=== PATIENT | male | born 1945 | race American Indian/Alaskan Native ===

== ENCOUNTER 2018-10-04 06:26 | Emergency (ER) | payer MEDICARE ==
[2018-10-04] MEDS ORDERED: MAGNESIUM SULFATE 2GM/50ML 2 GM/50 ML BAG IV ONE (06:43)
[2018-10-04] MEDS ORDERED: NACL 0.9% 500 ML 500 ML IV ONE (06:43)
[2018-10-04] MEDS ORDERED: PROVENTIL IH ONE ×2 (06:43→06:45)
[2018-10-04] MEDS ORDERED: ATROVENT IH ONE ×2 (06:43→06:45)
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
[2018-10-04 07:05] LABS: Hematocrit 35.7 % (35.5-45.6); Hemoglobin 11.8 gm/dl (11.8-15.2); Mean Corpuscular HGB Conc 33 % (32-34); Mean Corpuscular Volume 87 fl (84-94); Platelet Count 194 K/mm3 (140-440); Red Cell Distribution Width 13.4 % (13.2-15.2)
--- NOTE | 2018-10-04 07:08 | XRay Report ---
CHEST 1 VIEW 6:46 AM INDICATION / CLINICAL INFORMATION: Wheezing x 1 month. COMPARISON: None available. FINDINGS: SUPPORT DEVICES: None. HEART / MEDIASTINUM: The heart size and pulmonary vasculature are normal. LUNGS / PLEURA: There is minimal linear opacity in the right lung base. The lungs are otherwise clear . No pneumothorax. ADDITIONAL FINDINGS: There are multiple small metallic densities overlying the left coracoclavicular ligament. IMPRESSION: Minimal right basilar subsegmental atelectasis. Signer Name: Max Barlow MD Signed: 10/04/2018 7:03 AM Workstation Name: [id number]
[2018-10-04 07:17] LABS: INR 0.98 (0.87-1.13)
[2018-10-04 07:25] LABS: BUN/Creatinine Ratio 12; Blood Urea Nitrogen 14 mg/dL (9-20); Calcium 9.4 mg/dL (8.4-10.2); Hemolysis Index 10
--- NOTE | 2018-10-04 09:30 | Cat Scan Report ---
CTA CHEST WITH CONTRAST INDICATION : Shortness of breath for one day, asthma attack. TECHNIQUE: Axial imaging performed through the chest, with contrast bolus timing set to maximize opa cification of the pulmonary arteries. Sagittal and coronal reformatted images. 3-plane MIP reformatte d images were obtained. All CT scans at this location are performed using CT dose reduction for ALAR A by means of automated exposure control. Omnipaque 350 100 mL of intravenous contrast administered. COMPARISON: None FINDINGS: Bolus: Contrast bolus timing is adequate. PTE: No filling defect is present to suggest PTE. Mediastinum: Heart and great vessels appear normal. No pathologic mediastinal adenopathy. Lungs: The lung apices are cut off the [id number]. Minor scarring or atelectatic changes are note d at the right lung base. No evidence for infiltrate, mass, pleural effusion or pneumothorax. Bones: Degenerative changes in the spine with nothing acute. Upper abdomen: Limited imaging of the upper abdomen shows nothing acute. IMPRESSION: No evidence for pulmonary embolus. Minor scarring or atelectasis in the right lower lobe. No acute p rocess. Signer Name: Mj Wallace Jr, MD Signed: 10/04/2018 9:26 AM Workstation Name: [id number]
[2018-10-04 10:32] VITALS: BP 142/82
== END 2018-10-04 10:34 | disposition home or self-care (01) ==
LOC: ED 06:26
DX: J45.901 Unspecified asthma with (acute) exacerbation (principal); I10 Essential (primary) hypertension; K21.9 Gastro-esophageal reflux disease without esophagitis; Z98.890 Other specified postprocedural states; Z79.899 Other long term (current) drug therapy
CPT/HCPCS: 36415; 71045; 71275; 80048; 83735; 85027; 85379; 85610; 93005; 93010; 94640; 96365; 96366; 99291; J3475; J7040; Q9967; 94644

== ENCOUNTER 2019-01-26 15:20 | Emergency (ER) | payer MEDICARE ==
[2019-01-26] MEDS ORDERED: IBUPROFEN 600 MG TAB PO ONE (16:43)
--- NOTE | 2019-01-26 16:43 | Event Note ---
ED Screening Note Date of service: 01/26/19 Time: 16:39 ED Screening Note: This is a 74 y.o. M. that presents to the ER with headache, dizziness, and elevated BP since 1200 today. PMH HTN and asthma Patient reports taking medication prior to arrival which improved BP but can't get rid of BP and dizziness. This initial assessment/diagnostic orders/clinical plan/treatment(s) is/are subject to change based on patients health status, clinical progression and re- assessment by fellow clinical providers in the ED. Further treatment and workup at subsequent clinical providers discretion. Patient/guardian urged not to elope from the ED as their condition may be serious if not clinically assessed and managed. Initial orders include: Given analgesics
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
[2019-01-26] MEDS ORDERED: ACETAMINOPHEN W/CODEINE 300-30 MG TAB PO ONE (18:51)
[2019-01-26 19:41] VITALS: BP 176/87
--- NOTE | 2019-01-26 19:42 | Cat Scan Report ---
CT head/brain wo con INDICATION / CLINICAL INFORMATION: CT head for headache with h/o stroke. TECHNIQUE: Axial CT imaging of the brain was obtained without contrast. Coronal and sagittal reformatted imaging obtained and reviewed. All CT scans at this location are performed using CT dose reduction for LUPIS A by means of automated exposure control. COMPARISON: Prior head CT, 06/24/2014 FINDINGS: No intracranial hemorrhage, mass, or midline shift is noted. No extra-axial fluid collection or sugge stion of acute territorial infarct. Ventricular system and basilar cisterns are unremarkable. Age-mirza ropriate cerebral and cerebellar atrophy noted. Mild microvascular angiopathic changes noted. Mucous retention cysts are present in the left maxillary antrum not appreciably changed from prior ex am. Mucosal thickening is identified throughout all of the paranasal sinuses, but most prominently wi thin the ethmoid air cells bilaterally. No air-fluid levels are noted. Mastoid air cells are well aer ated bilaterally. IMPRESSION: 1. No acute intracranial abnormality. Overall, no interval change from prior head CT of 06/24/2014. 2. Mild age-related changes appropriate for the patient's age. 3. Mucosal thickening is noted throughout all paranasal sinuses, but is most prominent within the eth moid air cells bilaterally. This is essentially unchanged from prior exam. Signer Name: Gabrielle Gayle MD Signed: 01/26/2019 7:37 PM Workstation Name: [id number]
== END 2019-01-26 21:11 | disposition home or self-care (01) ==
LOC: ED 15:20
DX: J32.9 Chronic sinusitis, unspecified (principal); I10 Essential (primary) hypertension; K21.9 Gastro-esophageal reflux disease without esophagitis; J45.909 Unspecified asthma, uncomplicated; Z86.718 Personal history of other venous thrombosis and embolism; Z79.899 Other long term (current) drug therapy
CPT/HCPCS: 70450

== ENCOUNTER 2019-10-10 21:18 | Observation (INO) | payer MEDICARE ==
[2019-10-10 23:24] LABS: Basophils % (Auto) 0.6 % (0.0-1.8); Eosinophils # (Auto) 0.1 K/mm3 (0.0-0.4); Eosinophils % (Auto) 0.7 % (0.0-4.3); Hemoglobin 10.5 gm/dl (11.8-15.2); Lymphocytes # (Auto) 1.6 K/mm3 (1.2-5.4); Lymphocytes % (Auto) 18.4 % (13.4-35.0); Mean Corpuscular HGB Conc 34 % (32-34); Mean Corpuscular Volume 85 fl (84-94); Monocytes # (Auto) 0.6 K/mm3 (0.0-0.8); Monocytes % (Auto) 6.6 % (0.0-7.3); Platelet Count 192 K/mm3 (140-440); Red Blood Count 3.65 M/mm3 (3.65-5.03); Red Cell Distribution Width 12.9 % (13.2-15.2)
[2019-10-10 23:53] LABS: BUN/Creatinine Ratio 13; Blood Urea Nitrogen 16 mg/dL (9-20); Calcium 8.5 mg/dL (8.4-10.2); Hemolysis Index 3
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
[2019-10-11 10:29] LABS: INR 0.97 (0.87-1.13)
[2019-10-11 10:41] LABS: Alanine Aminotransferase 12 units/L (7-56); Albumin 4.3 g/dL (3.9-5)
--- NOTE | 2019-10-11 10:45 | Cat Scan Report ---
CT head without contrast HISTORY: weak dizzy. TECHNIQUE: Axial imaging performed from the skull apex through the skull base without the use of con trast. All CT scans at this location are performed using CT dose reduction for ALARA by means of aut omated exposure control. COMPARISON: CT head from 01/26/2019 FINDINGS: Parenchyma: No acute intracranial hemorrhage or parenchymal abnormality. Bilateral basal ganglia armani cifications are present. Ventricles: There is mild diffuse brain atrophy with commensurate ventricular enlargement which is l ikely age appropriate. Soft tissues: Soft tissues including the orbits appear normal. Bones: No acute osseous abnormality. Sinuses: There is diffuse paranasal sinus mucosal thickening/mucous retention cysts greatest involvi ng the frontal sinuses, multiple bilateral ethmoid air cells, the maxillary sinuses, and the sphenoid sinuses. The mastoid air cells are clear. IMPRESSION: 1. No acute intracranial abnormality. 2. Diffuse paranasal sinus disease. Signer Name: Cristobal Watkins MD Signed: 10/11/2019 10:41 AM Workstation Name: [id number]
[2019-10-11 10:48] LABS: Bilirubin,Direct < 0.2 mg/dL (0-0.2)
[2019-10-11 10:58] LABS: Uric Acid 7.8 mg/dL (3.5-7.6)
[2019-10-11] MEDS ORDERED: FUROSEMIDE 20 MG/2 ML INJ IV ONE (11:11)
[2019-10-11 13:10] LABS: Bilirubin,Urine NEG (Negative); Blood,Urine NEG (Negative); Color,Urine Yellow (Yellow); Protein,Urine <15 mg/dL mg/dL (Negative); Urobilinogen,Urine < 2.0 mg/dL (<2.0); WBC,Urine < 1.0 /HPF (0.0-6.0)
[2019-10-11] MEDS ORDERED: ACETAMINOPHEN 325 MG TAB PO PRN (13:24)
[2019-10-11] MEDS ORDERED: ONDANSETRON 4 MG/2 ML INJ IV PRN (13:24)
[2019-10-11] MEDS ORDERED: SODIUM CHLORIDE 0.9% 1000 ML 1,000 ML ONE (13:45)
[2019-10-11] MEDS: SODIUM CHLORIDE 0.9% 1000 ML 1,000 ML IV SCH (13:48)
[2019-10-11 14:35] LABS: Osmolality,Urine 241 Mosm/kg
[2019-10-11] MEDS ORDERED: PROAIR 90 MCG INHALATION PRN (17:26)
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
[2019-10-11] MEDS ORDERED: ALBUTEROL 2.5 MG/3 ML NEBU IH PRN (17:43)
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
[2019-10-11] MEDS ORDERED: ADVAIR INHALATION SCH (22:00)
[2019-10-11] MEDS ORDERED: ROSUVASTATIN 40 MG PO SCH (22:00)
[2019-10-11] MEDS: BUDESONIDE 0.5 MG/2 ML NEBU IH SCH (22:50)
[2019-10-11] MEDS: ARFORMOTEROL 15 MCG/2 ML NEBU IH SCH (22:50)
[2019-10-12] MEDS: SODIUM CHLORIDE 0.9% 1000 ML 1,000 ML IV SCH ×2 (04:33→18:47)
[2019-10-12 05:52] LABS: Basophils % (Auto) 0.2 % (0.0-1.8); Eosinophils # (Auto) 0.2 K/mm3 (0.0-0.4); Eosinophils % (Auto) 2.7 % (0.0-4.3); Hematocrit 30.6 % (35.5-45.6); Hemoglobin 10.3 gm/dl (11.8-15.2); Lymphocytes # (Auto) 1.7 K/mm3 (1.2-5.4); Lymphocytes % (Auto) 26.3 % (13.4-35.0); Mean Corpuscular HGB Conc 34 % (32-34); Mean Corpuscular Volume 87 fl (84-94); Monocytes # (Auto) 0.5 K/mm3 (0.0-0.8); Monocytes % (Auto) 8.2 % (0.0-7.3); Platelet Count 198 K/mm3 (140-440); Red Blood Count 3.54 M/mm3 (3.65-5.03); Red Cell Distribution Width 13.1 % (13.2-15.2)
[2019-10-12 06:14] LABS: Calcium 8.2 mg/dL (8.4-10.2)
--- NOTE | 2019-10-12 09:45 | Progress Note ---
Assessment and Plan - Patient Problems (1) Hyponatremia Current Visit: Yes Status: Acute Plan to address problem: suspect hyponatremia 2/2 chronic HCTZ use, intravascular volume depletion as indicated by increased serum uric acid level, low urine Na level. Cont to hold HCTZ. Na improved to 129 after treatment with lasix and gentle IV NS. Cr marginally increased to 1.5, likely pre-renal azotemia. Recommend another bolus with NS 250ml then repeat BMP in PM. if Na and Cr improves further stable for discharge from renal stand point with close out patient f/u in 1 week (2) Elevated CK Current Visit: Yes Status: Acute Plan to address problem: possibly 2/2 statin use? recommend to hold rosuvastatin and cont IV NS (3) Hyperlipidemia Current Visit: Yes Status: Chronic Qualifiers: Hyperlipidemia type: mixed hyperlipidemia Qualified Code(s): E78.2 - Mixed hyperlipidemia Plan to address problem: hold statin in the setting of mild rhabdomyolysis (4) Hyperuricemia Current Visit: Yes Status: Chronic (5) HTN (hypertension) Current Visit: No Status: Chronic Qualifiers: Hypertension type: essential hypertension Qualified Code(s): I10 - Essential (primary) hypertension Plan to address problem: monitor BP on current meds Subjective Date of service: 10/12/19 Principal diagnosis: hyponatremia Interval history: patient awake, alert, in no acute distress. denies fever, chills, n/v, CP, SOB, dysuria. Objective - Vital Signs Vital signs: Vital Signs - 12hr 10/12/19 10/12/19 05:00 05:40 Temperature 98.1 F Pulse Rate 74 Respiratory 18 20 Rate Blood Pressure 123/67 O2 Sat by Pulse 94 94 Oximetry - General Appearance General appearance: well-developed, well-nourished, appears stated age EENT: ATNC, PERRL, mucous membranes moist Neck: no JVD Respiratory: Present: Clear to Ascultation Cardiology: regular, S1S2 Gastrointestinal: normoactive bowel sounds Integumentary: no rash, other (no edema ) Neurologic: no focal deficit, alert and oriented x3, strength 5/5, CN 3-12 intact Psychiatric: mood/affect appropriate, cooperative - Lab 10/12/19 04:25 10/12/19 04:25 Most recent lab results Calcium 8.2 mg/dL (8.4-10.2) L 10/12/19 04:25 Magnesium 1.80 mg/dL (1.7-2.3) 10/11/19 09:53 Urine Sodium 19 mmol/L 10/11/19 12:56 Medications & Allergies - Medications Allergies/Adverse Reactions: Allergies No Known Allergies Allergy (Unverified 06/15/14 17:55) Home Medications: Home Medications Medication Instructions Recorded Confirmed Last Taken Type Advair Diskus 250-50 mcg 250 mcg INHALATION BID 10/11/19 10/11/19 Unknown History Doxazosin 2 mg PO QDAY 10/11/19 10/11/19 Unknown History Esomeprazole Magnesium 20 mg PO QDAY 10/11/19 10/11/19 Unknown History Ferrous Sulfate 324 MG 325 mg PO QDAY 10/11/19 10/11/19 Unknown History Olmesartan/Hydrochlorothiazide 20 mg PO QDAY 10/11/19 10/11/19 Unknown History [Benicar Hct 20-12.5 mg Tablet] ProAir HFA Inhaler 90 mcg INHALATION Q4HR PRN 10/11/19 10/11/19 Unknown History Remeron 45mg TAB 45 mg TRANSLINGU QHS 10/11/19 10/11/19 Unknown History Rosuvastatin (Nf) 40 mg PO Q12HR 10/11/19 10/11/19 Unknown History Vitamin D2 50,000 units PO QWEEK 10/11/19 10/11/19 Unknown History amLODIPine 5 mg PO QDAY 10/11/19 10/11/19 Unknown History Active Medications: Generic Name Dose Route Start Last Admin Trade Name Freq PRN Reason Stop Dose Admin Acetaminophen 650 mg 10/11/19 13:24 10/12/19 08:38 Tylenol PO 650 mg Q4H PRN Administration Pain MILD(1-3)/Fever >100.5/[facility]NAMARA Albuterol 2.5 mg 10/11/19 17:43 Proventil IH Q4HRT PRN Dyspnea Amlodipine Besylate 5 mg 10/12/19 10:00 Amlodipine PO QDAY ELIER Arformoterol Tartrate 15 mcg 10/11/19 20:00 10/11/19 22:50 Brovana Nebu IH Not Given Q12HRT ELIER Atorvastatin Calcium 40 mg 10/11/19 22:00 10/11/19 22:02 Lipitor PO 40 mg QHS ELIER Administration Budesonide 0.5 mg 10/11/19 20:00 10/11/19 22:50 Pulmicort IH Not Given Q12HRT ELIER Sodium Chloride 1,000 mls @ 75 mls/hr 10/11/19 13:30 10/12/19 04:33 Nacl 0.9% 1000 Ml IV 100 mls/hr DIRECT ELIER Administration Losartan Potassium 50 mg 10/12/19 10:00 Cozaar PO QDAY ELIER Ondansetron HCl 4 mg 10/11/19 13:24 10/11/19 22:02 Zofran IV 4 mg Q8H PRN Administration Nausea And Vomiting Sodium Chloride 10 ml 10/11/19 22:00 10/11/19 22:02 Sodium Chloride Flush Syringe 10 Ml IV 10 ml BID ELIER Administration Sodium Chloride 10 ml 10/11/19 13:24 Sodium Chloride Flush Syringe 10 Ml IV PRN PRN LINE FLUSH
[2019-10-12] MEDS ORDERED: SODIUM CHLORIDE 0.9% 250ML 250 ML IV ONE (10:00)
[2019-10-12] MEDS ORDERED: NON-FORMULARY EACH (Amlodipine 5 MG) PO SCH (10:00)
[2019-10-12] MEDS: amLODIPine 5 MG TAB PO SCH (10:26)
[2019-10-12] MEDS: LOSARTAN 50 MG TAB PO SCH (10:26)
[2019-10-12] MEDS: ARFORMOTEROL 15 MCG/2 ML NEBU IH SCH ×2 (10:49→21:31)
[2019-10-12] MEDS: BUDESONIDE 0.5 MG/2 ML NEBU IH SCH ×2 (10:49→21:31)
--- NOTE | 2019-10-12 16:58 | Progress Note ---
Assessment and Plan Assessment and plan: Socorro Varghese is a 74-year-old -Israeli male with history of hypertension, asthma, hyperlipidemia presents to the ED with complaints of blood pressure being high. He states that he ate hot dog earlier in the day at home and then checked his blood pressure at home and states it was 190/94 and he d ecided to come to the ED. he denies any chest pain. He states he has chronic shortness of breath from asthma. Complains of generalized weakness but denies any fever, chills, exertional chest pain nausea vomiting or abdominal pain. In the ED he was noted to be hyponatremic and patient is being admitted for further management (1) Hyponatremia Current Visit: Yes Status: Acute Plan to address problem: improved Thiazide induced, as patient is on losartan/HCT Start on IV normal saline Recheck electrolytes in a.m. 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 (4) Asthma Current Visit: No Status: Chronic Qualifiers: Asthma severity: mild Asthma complication type: uncomplicated Plan to address problem: Not in exacerbation Continue home inhalers (5) HTN (hypertension) Current Visit: No Status: Chronic Qualifiers: Hypertension type: essential hypertension Qualified Code(s): I10 - Essential (primary) hypertension Plan to address problem: Patient's blood pressure in the ED was in the normal range Continue amlodipine Losartan without HCT (6) Hyperlipidemia Current Visit: Yes Status: Chronic Qualifiers: Hyperlipidemia type: mixed hyperlipidemia Qualified Code(s): E78.2 - Mixed hyperlipidemia Plan to address problem: Continue statin History Interval history: Patient seen and examined no acute distress at this time resting comfortably. Hospitalist Physical - Physical exam Narrative exam: VITAL SIGNS: Reviewed. GENERAL: The patient appears normally developed,, obese vital signs as documented. HEAD: No signs of head trauma. EYES: Pupils are equal. Extraocular motions intact. EARS: Hearing grossly intact. MOUTH: Oropharynx is normal. NECK: No adenopathy, no JVD. CHEST: Chest with clear breath sounds bilaterally. No wheezes, rales, or rhonchi. CARDIAC: Regular rate and rhythm. S1 and S2, without murmurs, gallops, or rubs. VASCULAR: No Edema. Peripheral pulses normal and equal in all extremities. ABDOMEN: Soft, non tender and non distended. No rebound or guarding, and no masses palpated. Bowel Sounds normal. MUSCULOSKELETAL: Good range of motion of all major joints. Extremities without clubbing, cyanosis or edema. NEUROLOGIC EXAM: Alert and oriented x 3 No focal sensory or strength defic its. Speech normal. Follows commands. PSYCHIATRIC: Mood normal. SKIN: detail exam as documented in skin assessment - Constitutional Vitals: Temp Pulse Resp BP Pulse Ox 98.0 F 79 20 148/69 93 10/12/19 11:11 10/12/19 11:12 10/12/19 11:11 10/12/19 11:11 10/12/19 11:12 General appearance: Present: obese Results - Labs CBC & Chem 7: 10/12/19 04:25 10/12/19 14:41 Labs: Laboratory Last Values WBC 6.5 K/mm3 (4.5-11.0) 10/12/19 04:25 RBC 3.54 M/mm3 (3.65-5.03) L 10/12/19 04:25 Hgb 10.3 gm/dl (11.8-15.2) L 10/12/19 04:25 Hct 30.6 % (35.5-45.6) L 10/12/19 04:25 MCV 87 fl (84-94) 10/12/19 04:25 MCH 29 pg (28-32) 10/12/19 04:25 MCHC 34 % (32-34) 10/12/19 04:25 RDW 13.1 % (13.2-15.2) L 10/12/19 04:25 Plt Count 198 K/mm3 (140-440) 10/12/19 04:25 Lymph % (Auto) 26.3 % (13.4-35.0) 10/12/19 04:25 [place] % (Auto) 8.2 % (0.0-7.3) H 10/12/19 04:25 Eos % (Auto) 2.7 % (0.0-4.3) 10/12/19 04:25 Baso % (Auto) 0.2 % (0.0-1.8) 10/12/19 04:25 Lymph # 1.7 K/mm3 (1.2-5.4) 10/12/19 04:25 [place] # 0.5 K/mm3 (0.0-0.8) 10/12/19 04:25 Eos # 0.2 K/mm3 (0.0-0.4) 10/12/19 04:25 Baso # 0.0 K/mm3 (0.0-0.1) 10/12/19 04:25 Seg Neutrophils % 62.6 % (40.0-70.0) 10/12/19 04:25 Seg Neutrophils # 4.1 K/mm3 (1.8-7.7) 10/12/19 04:25 PT 13.0 Sec. (12.2-14.9) 10/11/19 09:53 INR 0.97 (0.87-1.13) 10/11/19 09:53 Sodium 131 mmol/L (137-145) L 10/12/19 14:41 Potassium 4.7 mmol/L (3.6-5.0) 10/12/19 14:41 Chloride 98.3 mmol/L (98-107) 10/12/19 14:41 Carbon Dioxide 19 mmol/L (22-30) L 10/12/19 14:41 Anion Gap 18 mmol/L 10/12/19 14:41 BUN 28 mg/dL (9-20) H 10/12/19 14:41 Creatinine 1.4 mg/dL (0.8-1.3) H 10/12/19 14:41 Estimated GFR 60 ml/min 10/12/19 14:41 BUN/Creatinine Ratio 20 % 10/12/19 14:41 Glucose 99 mg/dL (75-100) 10/12/19 14:41 Uric Acid 7.8 mg/dL (3.5-7.6) H 10/11/19 09:53 Calcium 8.0 mg/dL (8.4-10.2) L 10/12/19 14:41 Magnesium 1.80 mg/dL (1.7-2.3) 10/11/19 09:53 Total Bilirubin 0.40 mg/dL (0.1-1.2) 10/11/19 09:53 Direct Bilirubin < 0.2 mg/dL (0-0.2) 10/11/19 09:53 AST 22 units/L (5-40) 10/11/19 09:53 ALT 12 units/L (7-56) 10/11/19 09:53 Alkaline Phosphatase 68 units/L (35-129) 10/11/19 09:53 Total Creatine Kinase 1633 units/L (55-170) H 10/12/19 04:25 Total Protein 7.2 g/dL (6.3-8.2) 10/11/19 09:53 Albumin 4.3 g/dL (3.9-5) 10/11/19 09:53 Albumin/Globulin Ratio 1.5 % 10/11/19 09:53 TSH 0.618 mlU/mL (0.270-4.200) 10/11/19 09:53 Urine Color Yellow (Yellow) 10/11/19 12:56 Urine Turbidity Clear (Clear) 10/11/19 12:56 Urine pH 6.0 (5.0-7.0) 10/11/19 12:56 Ur Specific [place] 1.008 (1.003-1.030) 10/11/19 12:56 Urine Protein <15 mg/dl mg/dL (Negative) 10/11/19 12:56 Urine Glucose (UA) Neg mg/dL (Negative) 10/11/19 12:56 Urine Ketones Neg mg/dL (Negative) 10/11/19 12:56 Urine Blood Neg (Negative) 10/11/19 12:56 Urine Nitrite Neg (Negative) 10/11/19 12:56 Urine Bilirubin Neg (Negative) 10/11/19 12:56 Urine Urobilinogen < 2.0 mg/dL (<2.0) 10/11/19 12:56 Ur Leukocyte Esterase Neg (Negative) 10/11/19 12:56 Urine WBC (Auto) < 1.0 /HPF (0.0-6.0) 10/11/19 12:56 Urine RBC (Auto) 1.0 /HPF (0.0-6.0) 10/11/19 12:56 Urine Osmolality 241 Mosm/kg 10/11/19 12:56 Urine Sodium 19 mmol/L 10/11/19 12:56 Microbiology: Microbiology 10/11/19 12:56 Urine,Clean Catch Urine Culture - Preliminary NO GROWTH AFTER 24 HOURS Buck[place]/IV: Voiding Method Toilet IV Catheter Type [Left Hand] Peripheral IV Active Medications - Current Medications Current Medications: Generic Name Dose Route Start Last Admin Trade Name Freq PRN Reason Stop Dose Admin Acetaminophen 650 mg 10/11/19 13:24 10/12/19 08:38 Tylenol PO 650 mg Q4H PRN Administration Pain MILD(1-3)/Fever >100.5/[facility] Albuterol 2.5 mg 10/11/19 17:43 Proventil IH Q4HRT PRN Dyspnea Amlodipine Besylate 5 mg 10/12/19 10:00 10/12/19 10:26 Amlodipine PO 5 mg QDAY ELIER Administration Arformoterol Tartrate 15 mcg 10/11/19 20:00 10/12/19 10:49 Brovana Nebu IH 15 mcg Q12HRT ELIER Administration Budesonide 0.5 mg 10/11/19 20:00 10/12/19 10:49 Pulmicort IH 0.5 mg Q12HRT ELIER Administration Sodium Chloride 1,000 mls @ 75 mls/hr 10/11/19 13:30 10/12/19 04:33 Nacl 0.9% 1000 Ml IV 100 mls/hr DIRECT ELIER Administration Losartan Potassium 50 mg 10/12/19 10:00 10/12/19 10:26 Cozaar PO 50 mg QDAY ELIER Administration Ondansetron HCl 4 mg 10/11/19 13:24 10/11/19 22:02 Zofran IV 4 mg Q8H PRN Administration Nausea And Vomiting Sodium Chloride 10 ml 10/11/19 22:00 10/12/19 10:26 Sodium Chloride Flush Syringe 10 Ml IV 10 ml BID ELIER Administration Sodium Chloride 10 ml 10/11/19 13:24 Sodium Chloride Flush Syringe 10 Ml IV PRN PRN LINE FLUSH
[2019-10-13] MEDS: BUDESONIDE 0.5 MG/2 ML NEBU IH SCH (08:19)
[2019-10-13] MEDS: ARFORMOTEROL 15 MCG/2 ML NEBU IH SCH (08:19)
[2019-10-13 08:51] LABS: BUN/Creatinine Ratio 19; Blood Urea Nitrogen 21 mg/dL (9-20); Hemolysis Index 3
--- NOTE | 2019-10-13 10:28 | Discharge Summary ---
Providers - Providers Date of Admission: 10/11/19 12:17 Attending physician: LISSETTE PORTILLO MD 10/11/19 11:11 Consult to Physician [CONS] Urgent Comment: Consulting Provider: ANGEL TORRES Physician Instructions: Reason For Exam: hyponatremia Primary care physician: INTELLIGENCE SPECIALIST Hospitalization Condition: Good Hospital course: Socorro Varghese is a 74-year-old -[place] male with history of hypertension, asthma, hyperlipidemia presents to the ED with complaints of blood pressure being high. He states that he ate hot dog earlier in the day at home and then checked his blood pressure at home and states it was 190/94 and he decided to come to the ED. he denies any chest pain. He states he has chronic shortness of breath from asthma. Complains of generalized weakness but denies any fever, chills, exertional chest pain nausea vomiting or abdominal pain. In the ED he was noted to be hyponatremic and patient is being admitted for further management 10/12 clinically stable today, ambulating in the room. no new distress, BP stable despite discontinued meds, advised patient to monitor BP (1) Hyponatremia Current Visit: Yes Status: Acute Plan to address problem: improved Thiazide induced, as patient is on losartan/HCT Start on IV normal saline Recheck electrolytes in a.m. 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 (4) Asthma Current Visit: No Status: Chronic Qualifiers: Asthma severity: mild Asthma complication type: uncomplicated Plan to address problem: Not in exacerbation Continue home inhalers (5) HTN (hypertension) Current Visit: No Status: Chronic Qualifiers: Hypertension type: essential hypertension Qualified Code(s): I10 - Essential (primary) hypertension Plan to address problem: Patient's blood pressure in the ED was in the normal range Continue amlodipine Losartan without HCT (6) Hyperlipidemia Current Visit: Yes Status: Chronic Qualifiers: Hyperlipidemia type: mixed hyperlipidemia Qualified Code(s): E78.2 - Mixed hyperlipidemia Plan to address problem: Continue statin Disposition: TO HOME OR SELFCARE Exam - Constitutional Vitals: Temp Pulse Resp BP Pulse Ox 97.5 F L 98 H 20 115/53 95 10/13/19 05:27 10/13/19 08:19 10/13/19 08:19 10/13/19 05:27 10/13/19 05:27 Plan Activity: advance as tolerated, fall precautions Diet: low salt Special Instructions: record daily BP diary Follow up with: PRIMARY CAREMD [Primary Care Provider] - 3-5 Days ANGEL TORRES MD [Staff Physician] - 7 Days Prescriptions: Losartan [Cozaar] 50 mg PO QDAY #30 tablet
--- NOTE | 2019-10-13 10:31 | Progress Note ---
Assessment and Plan - Patient Problems (1) Hyponatremia Current Visit: Yes Status: Acute Plan to address problem: suspect hyponatremia 2/2 chronic HCTZ use, intravascular volume depletion as indicated by increased serum uric acid level, low urine Na level. Cont to hold HCTZ. Na normalized with IV NS. stable for discharge with outpatient f/u in 2 weeks (2) Elevated CK Current Visit: Yes Status: Acute Plan to address problem: possibly 2/2 statin use? recommend to hold rosuvastatin and cont IV NS (3) Hyperlipidemia Current Visit: Yes Status: Chronic Qualifiers: Hyperlipidemia type: mixed hyperlipidemia Qualified Code(s): E78.2 - Mixed hyperlipidemia Plan to address problem: hold statin in the setting of mild rhabdomyolysis (4) Hyperuricemia Current Visit: Yes Status: Chronic (5) HTN (hypertension) Current Visit: No Status: Chronic Qualifiers: Hypertension type: essential hypertension Qualified Code(s): I10 - Essential (primary) hypertension Plan to address problem: monitor BP on current meds Subjective Date of service: 10/13/19 Principal diagnosis: hyponatremia Interval history: patient awake, alert, in no acute distress. denies fever, chills, n/v, CP, SOB, dysuria. Objective - Vital Signs Vital signs: Vital Signs - 12hr 10/13/19 10/13/19 10/13/19 04:37 05:27 08:19 Temperature 97.5 F L 97.5 F L Pulse Rate 71 Pulse Rate [ 98 H Anterior Bilateral Throughout] Respiratory 16 16 Rate Respiratory 20 Rate [Anterior Bilateral Throughout] Blood Pressure 115/53 Blood Pressure 115/53 [Left] O2 Sat by Pulse 95 Oximetry - General Appearance General appearance: well-developed, well-nourished, appears stated age EENT: ATNC, PERRL, mucous membranes moist Neck: no JVD Respiratory: Present: Clear to Ascultation Cardiology: regular, S1S2 Gastrointestinal: normoactive bowel sounds Integumentary: no rash, other (no edema ) Neurologic: no focal deficit, alert and oriented x3, strength 5/5, CN 3-12 intact Psychiatric: mood/affect appropriate, cooperative - Lab 10/12/19 04:25 10/13/19 08:02 Most recent lab results Calcium 9.0 mg/dL (8.4-10.2) 10/13/19 08:02 Magnesium 1.80 mg/dL (1.7-2.3) 10/11/19 09:53 Urine Sodium 19 mmol/L 10/11/19 12:56 Medications & Allergies - Medications Allergies/Adverse Reactions: Allergies No Known Allergies Allergy (Unverified 06/15/14 17:55) Home Medications: Home Medications Medication Instructions Recorded Confirmed Last Taken Type Advair Diskus 250-50 mcg 250 mcg INHALATION BID 10/11/19 10/11/19 Unknown History Doxazosin 2 mg PO QDAY 10/11/19 10/11/19 Unknown History Esomeprazole Magnesium 20 mg PO QDAY 10/11/19 10/11/19 Unknown History Ferrous Sulfate 324 MG 325 mg PO QDAY 10/11/19 10/11/19 Unknown History ProAir HFA Inhaler 90 mcg INHALATION Q4HR PRN 10/11/19 10/11/19 Unknown History Remeron 45mg TAB 45 mg TRANSLINGU QHS 10/11/19 10/11/19 Unknown History Rosuvastatin (Nf) 40 mg PO Q12HR 10/11/19 10/11/19 Unknown History Vitamin D2 50,000 units PO QWEEK 10/11/19 10/11/19 Unknown History amLODIPine 5 mg PO QDAY 10/11/19 10/11/19 Unknown History Losartan [Cozaar] 50 mg PO QDAY #30 tablet 10/13/19 Unknown Rx Active Medications: Generic Name Dose Route Start Last Admin Trade Name Freq PRN Reason Stop Dose Admin Acetaminophen 650 mg 10/11/19 13:24 10/12/19 08:38 Tylenol PO 650 mg Q4H PRN Administration Pain MILD(1-3)/Fever >100.5/MCNAMARA Albuterol 2.5 mg 10/11/19 17:43 Proventil IH Q4HRT PRN Dyspnea Amlodipine Besylate 5 mg 10/12/19 10:00 10/12/19 10:26 Amlodipine PO 5 mg QDAY ELIER Administration Arformoterol Tartrate 15 mcg 10/11/19 20:00 10/13/19 08:19 Brovana Nebu IH 15 mcg Q12HRT ELIER Administration Budesonide 0.5 mg 10/11/19 20:00 10/13/19 08:19 Pulmicort IH 0.5 mg Q12HRT ELIER Administration Sodium Chloride 1,000 mls @ 75 mls/hr 10/11/19 13:30 10/12/19 18:47 Nacl 0.9% 1000 Ml IV 100 mls/hr DIRECT ELIER Administration Losartan Potassium 50 mg 10/12/19 10:00 10/12/19 10:26 Cozaar PO 50 mg QDAY ELIER Administration Ondansetron HCl 4 mg 10/11/19 13:24 10/11/19 22:02 Zofran IV 4 mg Q8H PRN Administration Nausea And Vomiting Sodium Chloride 10 ml 10/11/19 22:00 10/12/19 22:37 Sodium Chloride Flush Syringe 10 Ml IV 10 ml BID ELIER Administration Sodium Chloride 10 ml 10/11/19 13:24 Sodium Chloride Flush Syringe 10 Ml IV PRN PRN LINE FLUSH
[2019-10-13 11:18] VITALS: BP 133/63
[2019-10-13] MEDS: LOSARTAN 50 MG TAB PO SCH (11:23)
[2019-10-13] MEDS: amLODIPine 5 MG TAB PO SCH (11:23)
== END 2019-10-13 12:20 | disposition home or self-care (01) ==
LOC: ED 21:18 → 3A 10-11 12:17
PROVIDERS: ADMIT Internal Medicine; ATTEND Internal Medicine
DX: I10 Essential (primary) hypertension (principal); E87.1 Hypo-osmolality and hyponatremia; E79.0 Hyperuricemia without signs of inflammatory arthritis and tophaceous disease; J45.909 Unspecified asthma, uncomplicated; E78.5 Hyperlipidemia, unspecified; R74.8 Abnormal levels of other serum enzymes; R42 Dizziness and giddiness; R60.0 Localized edema; Z98.890 Other specified postprocedural states; Z87.891 Personal history of nicotine dependence; Z79.899 Other long term (current) drug therapy
CPT/HCPCS: 36415; 70450; 71045; 80048; 80076; 81001; 82550; 83735; 83935; 84300; 84443; 84550; 85025; 85610; 87086; 93005; 94640; 96361; 96374; 96375; 99285; A9270; G0378; J1940; J2405; J7030; J7050

== ENCOUNTER 2020-02-08 06:04 | Emergency (ER) | payer MEDICARE ==
[2020-02-08] MEDS ORDERED: ACETAMINOPHEN 325 MG TAB PO ONE (08:58)
[2020-02-08 09:43] LABS: Basophils % (Auto) 0.4 % (0.0-1.8); Eosinophils # (Auto) 0.1 K/mm3 (0.0-0.4); Hematocrit 37.4 % (35.5-45.6); Hemoglobin 12.4 gm/dl (11.8-15.2); Lymphocytes # (Auto) 0.5 K/mm3 (1.2-5.4); Lymphocytes % (Auto) 7.7 % (13.4-35.0); Mean Corpuscular HGB Conc 33 % (32-34); Mean Corpuscular Volume 83 fl (84-94); Monocytes # (Auto) 0.8 K/mm3 (0.0-0.8); Platelet Count 190 K/mm3 (140-440); Red Blood Count 4.53 M/mm3 (3.65-5.03); Red Cell Distribution Width 13.3 % (13.2-15.2)
[2020-02-08 09:55] LABS: INR 0.95 (0.87-1.13); Partial Thromboplastin Time 28.8 Sec. (24.2-36.6)
[2020-02-08 09:56] LABS: Creatine Kinase MB 6.5 ng/mL (0.0-4.0)
[2020-02-08 10:01] LABS: Alanine Aminotransferase 14 units/L (7-56); Albumin 4.5 g/dL (3.9-5); BUN/Creatinine Ratio 9; Bilirubin,Direct < 0.2 mg/dL (0-0.2); Blood Urea Nitrogen 9 mg/dL (9-20); Calcium 9.6 mg/dL (8.4-10.2); Hemolysis Index 4
--- NOTE | 2020-02-08 10:06 | Cat Scan Report ---
CT head/brain wo con INDICATION / CLINICAL INFORMATION: 75 years Male; MAIN. TECHNIQUE: Routine CT head without contrast. All CT scans at this location are performed using CT dos e reduction for ALARA by means of automated exposure control. COMPARISON: The study is compared to the previous CT of 10/11/2019. FINDINGS: BRAIN / INTRACRANIAL CONTENTS: There is mild to moderate cerebral white matter disease including laure g the left acevedo radiata which is nonspecific though most compatible with microvascular angiopathy. The findings appear to correlate with the previous CT. There is continued calcification within the basal ganglia. There is no clear CT evidence of acute int racranial hemorrhage or significant mass effect. There is mild cerebral atrophy with associated mild prominence of the ventricular system which is unchanged. ORBITS: No significant abnormality of visualized orbits. SINUSES / MASTOIDS: There is continued extensive opacification involving ethmoid air cells at. This m ild opacification within the sphenoid and visualized maxillary sinuses. There is improved aeration of the frontal sinuses from 10/11/2019. CRANIOCERVICAL JUNCTION: No significant abnormality. ADDITIONAL FINDINGS: None. IMPRESSION: 1. 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 2. There is extensive sinus inflammatory disease as described. Signer Name: Rogers Sidhu MD Signed: 02/08/2020 10:02 AM Workstation Name: [id number]
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
[2020-02-08 12:22] VITALS: BP 162/88
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
== END 2020-02-08 12:44 | disposition home or self-care (01) ==
LOC: ED 06:04
DX: I10 Essential (primary) hypertension (principal); E87.1 Hypo-osmolality and hyponatremia; J45.909 Unspecified asthma, uncomplicated; K21.9 Gastro-esophageal reflux disease without esophagitis; Z79.899 Other long term (current) drug therapy; Z98.890 Other specified postprocedural states
CPT/HCPCS: 36415; 70450; 71045; 80048; 80076; 82550; 82553; 83880; 84484; 85025; 85610; 85730; 93005

== ENCOUNTER 2020-03-31 18:07 | Observation (INO) | payer MEDICARE ==
--- NOTE | 2020-03-31 19:30 | Cat Scan Report ---
CT HEAD WITHOUT CONTRAST INDICATION / CLINICAL INFORMATION: Dizziness, hypertension. TECHNIQUE: All CT scans at this location are performed using CT dose reduction for ALARA by means of automated e xposure control. COMPARISON: Head CT 02/08/2020 and 01/26/2019 FINDINGS: HEMORRHAGE: No evidence of intracranial hemorrhage or extra-axial fluid collection. EXTRA-AXIAL SPACES: Cortical sulci and sylvian fissures are within normal limits for the patient's ag e of 75 years. Basilar cisterns have an unremarkable appearance. VENTRICULAR SYSTEM: The third and lateral ventricles are mildly enlarged out of proportion to the cor tical sulci. This probably reflects the presence of central greater than cortical atrophy. CEREBRAL PARENCHYMA: Periventricular and deep white matter lucency is observed. This is probably seco ndary to microvascular ischemic change. Incidental note is made of bilateral physiological basal gang barb calcifications. There is no indication of recent infarction. No areas of encephalomalacia are patrick ntified. MIDLINE SHIFT OR HERNIATION: There is no mass effect. CEREBELLUM / BRAINSTEM: Brainstem and cerebellum have an unremarkable appearance. MIDLINE STRUCTURES:No abnormalities of the pituitary gland or pineal region are observed INTRACRANIAL VESSELS:Calcified atherosclerotic plaque is present along the course of the cavernous se gments of both internal carotid arteries. Similar findings are seen at the distal vertebral arteries. ORBITS: visualized portions of the orbits have an unremarkable appearance. SOFT TISSUES of HEAD: No significant abnormality. CALVARIUM: Evaluation of bone windows reveals no abnormalities. PARANASAL SINUSES / MASTOID AIR CELLS: Retention cysts or polyps are present in the base of both maxi llary sinuses. Similar findings are seen in the sphenoid sinuses. Opacification multiple ethmoid air cells is observed. Sinus disease has progressed since prior study. IMPRESSION: 1. No acute intracranial abnormality. 2. Inflammatory changes are present in the paranasal sinuses. This has progressed since prior study. Signer Name: Victorino Leung MD Signed: 03/31/2020 7:25 PM Workstation Name: [id number]
[2020-03-31] MEDS ORDERED: MECLIZINE 25 MG TAB PO ONE (19:39)
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
[2020-03-31 20:23] LABS: Basophils # (Auto) 0.1 K/mm3 (0.0-0.1); Basophils % (Auto) 0.8 % (0.0-1.8); Eosinophils # (Auto) 0.1 K/mm3 (0.0-0.4); Eosinophils % (Auto) 1.4 % (0.0-4.3); Hematocrit 36.6 % (35.5-45.6); Hemoglobin 12.2 gm/dl (11.8-15.2); Lymphocytes # (Auto) 1.8 K/mm3 (1.2-5.4); Mean Corpuscular HGB Conc 33 % (32-34); Mean Corpuscular Volume 84 fl (84-94); Monocytes # (Auto) 0.6 K/mm3 (0.0-0.8); Monocytes % (Auto) 7.4 % (0.0-7.3); Platelet Count 221 K/mm3 (140-440); Red Blood Count 4.37 M/mm3 (3.65-5.03); Red Cell Distribution Width 14.3 % (13.2-15.2)
[2020-03-31 20:24] LABS: Creatine Kinase MB 5.2 ng/mL (0.0-4.0)
[2020-03-31 20:25] LABS: BUN/Creatinine Ratio 16; Blood Urea Nitrogen 16 mg/dL (9-20); Calcium 8.6 mg/dL (8.4-10.2); Hemolysis Index 5
[2020-03-31] MEDS ORDERED: SODIUM CHLORIDE 0.9% 1000 ML 1,000 ML IV ONE ×2 (20:32)
[2020-03-31] MEDS ORDERED: cloNIDine 0.2 MG TAB PO ONE (21:45)
[2020-03-31] MEDS ORDERED: MAGNESIUM HYDROXIDE (MOM) ORAL LIQD UDC PO PRN (22:32)
[2020-03-31] MEDS ORDERED: ACETAMINOPHEN 325 MG TAB PO PRN (22:32)
[2020-03-31] MEDS ORDERED: ALBUTEROL 2.5 MG/3 ML NEBU IH PRN (22:32)
[2020-03-31] MEDS ORDERED: ONDANSETRON 4 MG/2 ML INJ IV PRN (22:32)
[2020-03-31] MEDS ORDERED: MORPHINE 2 MG/1 ML INJ IV PRN (22:32)
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
[2020-03-31] MEDS ORDERED: SODIUM CHLORIDE 0.9% 1000 ML 1,000 ML IV SCH (22:45)
[2020-04-01] MEDS ORDERED: ALUM-MAG HYDROXIDE-SIMETHICONE 200-200-20MG/5ML ORAL LIQD 30 ML PO PRN (03:14)
[2020-04-01] MEDS ORDERED: PROAIR 90 MCG INHALATION PRN (04:07)
[2020-04-01 06:03] LABS: Basophils % (Auto) 0.4 % (0.0-1.8); Eosinophils # (Auto) 0.2 K/mm3 (0.0-0.4); Eosinophils % (Auto) 2.1 % (0.0-4.3); Hematocrit 34.3 % (35.5-45.6); Hemoglobin 11.5 gm/dl (11.8-15.2); Lymphocytes # (Auto) 1.7 K/mm3 (1.2-5.4); Lymphocytes % (Auto) 22.9 % (13.4-35.0); Mean Corpuscular HGB Conc 33 % (32-34); Mean Corpuscular Volume 84 fl (84-94); Monocytes # (Auto) 0.8 K/mm3 (0.0-0.8); Monocytes % (Auto) 10.2 % (0.0-7.3); Platelet Count 216 K/mm3 (140-440); Red Cell Distribution Width 14.6 % (13.2-15.2)
[2020-04-01 06:12] LABS: INR 0.9 (0.87-1.13)
[2020-04-01 06:36] LABS: BUN/Creatinine Ratio 15; Blood Urea Nitrogen 17 mg/dL (9-20); Calcium 9.1 mg/dL (8.4-10.2); Hemolysis Index 0
[2020-04-01] MEDS ORDERED: VITAMIN D2 PO SCH (10:00)
[2020-04-01] MEDS ORDERED: ROSUVASTATIN 40 MG PO SCH (10:00)
[2020-04-01] MEDS ORDERED: NON-FORMULARY EACH (Esomeprazole Magnesium 20 MG) PO SCH (10:00)
[2020-04-01] MEDS ORDERED: ADVAIR INHALATION SCH (10:00)
[2020-04-01] MEDS ORDERED: FERROUS SULFATE PO SCH (10:00)
--- NOTE | 2020-04-01 10:10 | Progress Note ---
Assessment and Plan Assessment and plan: Hyponatremia. Autonomic imbalance. GERD Asthma. Compensated Accelerated hypertension DVT prophylaxis. 04/01/2020. CT scan of the head was negative, chest x-ray and EKG were also unremarkable. Labs reveals hyponatremia of 123 on admission. Sodium has improved to 130 with IV fluid hydration of normal saline. Continue IV fluid normal saline and follow-up BMP in a.m. Nephrology consultation pending. History Interval history: No new issues overnight. Dizziness has resolved. Hospitalist Physical - Constitutional Vitals: Temp Pulse Resp BP Pulse Ox 97.6 F 83 18 165/86 94 04/01/20 07:48 04/01/20 07:48 04/01/20 07:48 04/01/20 07:48 04/01/20 07:48 General appearance: Present: no acute distress, well-nourished - EENT Eyes: Present: PERRL, EOM intact ENT: hearing intact, clear oral mucosa, dentition normal - Neck Neck: Present: supple, normal ROM - Respiratory Respiratory effort: normal Respiratory: bilateral: CTA - Cardiovascular Rhythm: regular Heart Sounds: Present: S1 & S2. Absent: gallop, rub - Extremities Extremities: no ischemia, No edema, Full ROM - Abdominal General gastrointestinal: soft, non-tender, non-distended, normal bowel sounds - Integumentary Integumentary: Present: clear, warm, dry - Neurologic Neurologic: CNII-XII intact, moves all extremities HEART Score - HEART Score Troponin: Troponin T < 0.010 ng/mL (0.00-0.029) 03/31/20 19:45 Results - Labs CBC & Chem 7: 04/01/20 05:25 04/01/20 05:25 Labs: Laboratory Last Values WBC 7.4 K/mm3 (4.5-11.0) 04/01/20 05:25 RBC 4.10 M/mm3 (3.65-5.03) 04/01/20 05:25 Hgb 11.5 gm/dl (11.8-15.2) L 04/01/20 05:25 Hct 34.3 % (35.5-45.6) L 04/01/20 05:25 MCV 84 fl (84-94) 04/01/20 05:25 MCH 28 pg (28-32) 04/01/20 05:25 MCHC 33 % (32-34) 04/01/20 05:25 RDW 14.6 % (13.2-15.2) 04/01/20 05:25 Plt Count 216 K/mm3 (140-440) 04/01/20 05:25 Lymph % (Auto) 22.9 % (13.4-35.0) 04/01/20 05:25 [place] % (Auto) 10.2 % (0.0-7.3) H 04/01/20 05:25 Eos % (Auto) 2.1 % (0.0-4.3) 04/01/20 05:25 Baso % (Auto) 0.4 % (0.0-1.8) 04/01/20 05:25 Lymph # (Auto) 1.7 K/mm3 (1.2-5.4) 04/01/20 05:25 [place] # (Auto) 0.8 K/mm3 (0.0-0.8) 04/01/20 05:25 Eos # (Auto) 0.2 K/mm3 (0.0-0.4) 04/01/20 05:25 Baso # (Auto) 0.0 K/mm3 (0.0-0.1) 04/01/20 05:25 Seg Neutrophils % 64.4 % (40.0-70.0) 04/01/20 05:25 Seg Neutrophils # 4.8 K/mm3 (1.8-7.7) 04/01/20 05:25 PT 11.9 Sec. (12.2-14.9) L 04/01/20 05:25 INR 0.90 (0.87-1.13) 04/01/20 05:25 Sodium 130 mmol/L (137-145) L D 04/01/20 05:25 Potassium 4.1 mmol/L (3.6-5.0) 04/01/20 05:25 Chloride 94.5 mmol/L (98-107) L 04/01/20 05:25 Carbon Dioxide 23 mmol/L (22-30) 04/01/20 05:25 Anion Gap 17 mmol/L 04/01/20 05:25 BUN 17 mg/dL (9-20) 04/01/20 05:25 Creatinine 1.1 mg/dL (0.8-1.3) 04/01/20 05:25 Estimated GFR > 60 ml/min 04/01/20 05:25 BUN/Creatinine Ratio 15 % 04/01/20 05:25 Glucose 100 mg/dL (75-100) 04/01/20 05:25 Calcium 9.1 mg/dL (8.4-10.2) 04/01/20 05:25 Total Creatine Kinase 306 units/L (55-170) H 03/31/20 19:45 CK-MB (CK-2) 5.2 ng/mL (0.0-4.0) H 03/31/20 19:45 CK-MB (CK-2) Rel Index 1.6 (0-4) 03/31/20 19:45 Troponin T < 0.010 ng/mL (0.00-0.029) 03/31/20 19:45 [place]/IV: Voiding Method Urinal Active Medications - Current Medications Current Medications: Generic Name Dose Route Start Last Admin Trade Name Freq PRN Reason Stop Dose Admin Acetaminophen 650 mg 03/31/20 22:32 Acetaminophen 325 Mg Tab PO Q4H PRN Pain MILD(1-3)/Fever >100.5/[facility]NAMARA Al Hydrox/Mg Hydrox/Simethicone 30 ml 04/01/20 03:14 04/01/20 03:24 Alum-Mag Hydroxide-Simethicone [id number]/5ml Oral Liqd 30 Ml PO 30 ml Q4H PRN Administration Indigestion Albuterol 2.5 mg 03/31/20 22:32 Albuterol 2.5 Mg/3 Ml Nebu IH Q4HRT PRN Shortness Of Breath Amlodipine Besylate 10 mg 04/01/20 10:00 Amlodipine 10 Mg Tab PO DAILY [facility] Arformoterol Tartrate 15 mcg 04/01/20 08:00 Arformoterol 15 Mcg/2 Ml Nebu IH Q12HRT [facility] Atorvastatin Calcium 80 mg 04/01/20 22:00 Atorvastatin 40 Mg Tab PO QHS [facility] Budesonide 0.5 mg 04/01/20 08:00 Budesonide 0.5 Mg/2 Ml Nebu IH Q12HRT [facility] Ergocalciferol 50,000 unit 04/07/20 10:00 Ergocalciferol (Vit D2) 50,000 Unit Cap PO Tu [facility] Ferrous Sulfate 325 mg 04/01/20 10:00 Ferrous Sulfate 325 Mg Tab PO QDAY [facility] Sodium Chloride 1,000 mls @ 75 mls/hr 04/01/20 08:00 Nacl 0.9% 1000 Ml IV DIRECT [facility] Losartan Potassium 50 mg 04/01/20 10:00 Losartan 50 Mg Tab PO QDAY [facility] Magnesium Hydroxide 30 ml 03/31/20 22:32 Magnesium Hydroxide (Mom) Oral Liqd Udc PO Q4H PRN Constipation Mirtazapine 45 mg 04/01/20 22:00 Mirtazapine 15 Mg Solutab PO QHS [facility] Morphine Sulfate 2 mg 03/31/20 22:32 Morphine 2 Mg/1 Ml Inj IV Q4H PRN Pain, Moderate (4-6) Ondansetron HCl 4 mg 03/31/20 22:32 Ondansetron 4 Mg/2 Ml Inj IV Q8H PRN Nausea And Vomiting Pantoprazole Sodium 20 mg 04/01/20 10:00 Pantoprazole 20 Mg Tab PO QDAY [facility] Sodium Chloride 10 ml 04/01/20 10:00 Sodium Chloride 0.9% 10 Ml Flush Syringe IV BID [facility] Sodium Chloride 10 ml 03/31/20 22:32 Sodium Chloride 0.9% 10 Ml Flush Syringe IV PRN PRN LINE FLUSH
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
[2020-04-01] MEDS: BUDESONIDE 0.5 MG/2 ML NEBU IH SCH ×2 (10:20→20:00)
[2020-04-01] MEDS: ARFORMOTEROL 15 MCG/2 ML NEBU IH SCH ×2 (10:20→20:00)
[2020-04-01] MEDS: FERROUS SULFATE 325 MG TAB PO SCH (10:30)
[2020-04-01] MEDS: PANTOPRAZOLE 20 MG TAB PO SCH (10:30)
[2020-04-01] MEDS: LOSARTAN 50 MG TAB PO SCH (10:30)
[2020-04-01] MEDS: amLODIPine 10 MG TAB PO SCH (10:30)
[2020-04-01] MEDS: SODIUM CHLORIDE 0.9% 1000 ML 1,000 ML IV SCH ×2 (10:33→19:04)
[2020-04-01 12:12] LABS: Bilirubin,Urine NEG (Negative); Blood,Urine NEG (Negative); Color,Urine Colorless (Yellow); Protein,Urine <15 mg/dL mg/dL (Negative); Urobilinogen,Urine < 2.0 mg/dL (<2.0)
[2020-04-01 12:13] LABS: RBC,Urine < 1.0 /HPF (0.0-6.0)
[2020-04-01 12:14] LABS: WBC,Urine < 1.0 /HPF (0.0-6.0)
[2020-04-01 14:35] LABS: Osmolality,Urine 108 Mosm/kg
[2020-04-01] MEDS ORDERED: REMERON TRANSLINGU SCH (22:00)
[2020-04-01] MEDS ORDERED: MIRTAZAPINE 15 MG SOLUTAB PO SCH (22:00)
[2020-04-02 06:38] LABS: Basophils % (Auto) 0.7 % (0.0-1.8); Eosinophils # (Auto) 0.3 K/mm3 (0.0-0.4); Eosinophils % (Auto) 4.4 % (0.0-4.3); Hematocrit 36.7 % (35.5-45.6); Lymphocytes # (Auto) 2.1 K/mm3 (1.2-5.4); Lymphocytes % (Auto) 31.5 % (13.4-35.0); Mean Corpuscular HGB Conc 33 % (32-34); Mean Corpuscular Volume 86 fl (84-94); Monocytes # (Auto) 0.6 K/mm3 (0.0-0.8); Monocytes % (Auto) 8.3 % (0.0-7.3); Platelet Count 231 K/mm3 (140-440); Red Blood Count 4.29 M/mm3 (3.65-5.03)
[2020-04-02 07:00] LABS: BUN/Creatinine Ratio 15; Blood Urea Nitrogen 16 mg/dL (9-20); Calcium 9.4 mg/dL (8.4-10.2); Hemolysis Index 45; Uric Acid 7.5 mg/dL (3.5-7.6)
--- NOTE | 2020-04-02 08:28 | Discharge Summary ---
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 Patient has had a history of dizziness in the past and was told he had vertigo. He went to [facility] with a friend and while there he became dizzy. Patient states it was lightheadedness but then also says he felt the room spinning around. He had a slight headache. Patient reported that symptoms kept worsening and so was brought to the hospital for evaluation. He blood pressure at home ranges from 120/80-160/73 mmHg. He denied any focal weakness or numbness. No syncope or seizures. Labs on presentation showed sodium low at 123 mmol/L. Blood pressure was also elevated. The patient was admitted with diagnosis of hyponatremia, autonomic imbalance and accelerated hypertension. Nephrology was consulted for hyponatremia. Nephrology underwent work-up with checking urine sodium and Osmolality. Check TSH, random cortisol level and uric acid. Follow-up electrolytes especially sodium. Studies can be followed up as an outpatient. Sodium stabilized with IV fluid of normal saline to 138. Autonomic imbalance/dizziness resolved and patient was back to baseline. Therefore, patient is felt to have received maximal hospital benefit and will be discharged home. Dedicated discharge time 35 minutes. Disposition: DC-01 TO HOME OR SELFCARE Time spent for discharge: 35 - Discharge Diagnoses (1) Autonomic dysfunction Status: Acute (2) Vertigo Status: Acute (3) Dizziness Status: Acute (4) Hyponatremia Status: Acute (5) GERD (gastroesophageal reflux disease) Status: Acute (6) HTN (hypertension) Status: Chronic Qualifiers: Hypertension type: essential hypertension Qualified Code(s): I10 - Essential (primary) hypertension (7) Hyperlipidemia Status: Chronic Qualifiers: Hyperlipidemia type: mixed hyperlipidemia Qualified Code(s): E78.2 - Mixed hyperlipidemia Core Measure Documentation - Palliative Care Palliative Care/ Comfort Measures: Not Applicable - Core Measures Any of the following diagnoses?: none Exam - Constitutional Vitals: Temp Pulse Resp BP Pulse Ox 97.6 F 75 16 125/70 94 04/02/20 03:40 04/02/20 03:40 04/02/20 03:40 04/02/20 03:40 04/02/20 03:40 General appearance: Present: no acute distress, well-nourished - EENT Eyes: Present: PERRL ENT: hearing intact, clear oral mucosa - Neck Neck: Present: supple, normal ROM - Respiratory Respiratory effort: normal Respiratory: bilateral: CTA - Cardiovascular Heart Sounds: Present: S1 & S2. Absent: rub, click - Extremities Extremities: pulses symmetrical, No edema Peripheral Pulses: within normal limits - Abdominal General gastrointestinal: Present: soft, non-tender, non-distended, normal bowel sounds Male genitourinary: Present: normal - Integumentary Integumentary: Present: clear, warm, dry - Musculoskeletal Musculoskeletal: gait normal, strength equal bilaterally - Psychiatric Psychiatric: appropriate mood/affect, intact judgment & insight - Neurologic Neurologic: CNII-XII intact, moves all extremities Plan Activity: advance as tolerated Weight Bearing Status: Weight Bear as Tolerated Diet: regular Follow up with: PRIMARY CAREMD [Primary Care Provider] - 3-5 Days KORY LAWRENCE MD [Staff Physician] - 7 Days Prescriptions: Advair Diskus 250-50 mcg 250 mcg INHALATION BID 30 Days amLODIPine 10 mg PO DAILY #30 tab Losartan [Cozaar] 50 mg PO QDAY #30 tablet Esomeprazole Magnesium 20 mg PO QDAY #30 Ferrous Sulfate 324 MG 325 mg PO QDAY #30 ProAir HFA Inhaler 90 mcg INHALATION Q4HR PRN 30 Days PRN Reason: Dyspnea Remeron 45mg TAB 45 mg TRANSLINGU QHS #30 Rosuvastatin (Nf) 40 mg PO Q12HR #60 Vitamin D2 50,000 units PO QWEEK #4
[2020-04-02] MEDS: BUDESONIDE 0.5 MG/2 ML NEBU IH SCH (08:55)
[2020-04-02] MEDS: ARFORMOTEROL 15 MCG/2 ML NEBU IH SCH (08:55)
[2020-04-02 09:42] VITALS: BP 139/58
[2020-04-02] MEDS: LOSARTAN 50 MG TAB PO SCH (10:22)
[2020-04-02] MEDS: PANTOPRAZOLE 20 MG TAB PO SCH (10:22)
[2020-04-02] MEDS: amLODIPine 10 MG TAB PO SCH (10:22)
[2020-04-02] MEDS: FERROUS SULFATE 325 MG TAB PO SCH (10:23)
[2020-04-02] MEDS ORDERED: traZODone 50 MG TAB PO SCH (22:00)
[2020-04-07] MEDS ORDERED: ERGOCALCIFEROL (VIT D2) 50,000 UNIT CAP PO SCH (10:00)
== END 2020-04-02 10:57 | disposition home or self-care (01) ==
LOC: ED 18:07 → 4A 21:43
PROVIDERS: ADMIT Internal Medicine Geriatric Medicine; ATTEND Hospitalist
DX: E87.1 Hypo-osmolality and hyponatremia (principal); I10 Essential (primary) hypertension; J45.909 Unspecified asthma, uncomplicated; K21.9 Gastro-esophageal reflux disease without esophagitis; E78.5 Hyperlipidemia, unspecified; R51.9 Headache, unspecified; R42 Dizziness and giddiness; F45.8 Other somatoform disorders; F17.210 Nicotine dependence, cigarettes, uncomplicated; Z86.718 Personal history of other venous thrombosis and embolism; Z98.890 Other specified postprocedural states
CPT/HCPCS: 36415; 70450; 80048; 81001; 82550; 82553; 83935; 84295; 84300; 84443; 84484; 84550; 85025; 85610; 87641; 93005; 94640; 96360; 96361; 99284; A9270; G0378; J7030

== ENCOUNTER 2020-04-10 20:26 | Emergency (ER) | payer MEDICARE ==
--- NOTE | 2020-04-10 20:49 | Event Note ---
ED Screening Note ED Screening Note: Patient presents for dizziness and hypertension that began this morning He states his systolic blood pressure was in the 200s at home He states he takes hydrochlorothiazide and one other blood pressure medication but does not know what it is He states he also takes meclizine for vertigo States he has some mild shortness of breath He denies any chest pain, syncope, hemoptysis, leg swelling, fever, nausea, vomiting, diarrhea This initial assessment/diagnostic orders/clinical plan/treatment(s) is/are sanchez bject to change based on patients health status, clinical progression and re- assessment by fellow clinical providers in the ED. Further treatment and workup at subsequent clinical providers discretion. Patient/guardian urged not to elope from the ED as their condition may be serious if not clinically assessed and managed. Initial orders include: Labs, EKG, chest x-ray, UA, ct head
[2020-04-10 21:14] LABS: Basophils # (Auto) 0.1 K/mm3 (0.0-0.1); Basophils % (Auto) 1.2 % (0.0-1.8); Eosinophils # (Auto) 0.1 K/mm3 (0.0-0.4); Eosinophils % (Auto) 3.3 % (0.0-4.3); Hematocrit 38.1 % (35.5-45.6); Hemoglobin 12.6 gm/dl (11.8-15.2); Lymphocytes # (Auto) 1.5 K/mm3 (1.2-5.4); Lymphocytes % (Auto) 32.7 % (13.4-35.0); Mean Corpuscular HGB Conc 33 % (32-34); Mean Corpuscular Volume 84 fl (84-94); Monocytes # (Auto) 0.4 K/mm3 (0.0-0.8); Monocytes % (Auto) 8.6 % (0.0-7.3); Platelet Count 219 K/mm3 (140-440); Red Blood Count 4.51 M/mm3 (3.65-5.03); Red Cell Distribution Width 14.3 % (13.2-15.2)
--- NOTE | 2020-04-10 21:26 | XRay Report ---
CHEST 2 VIEWS, 04/10/2020 9:09 PM INDICATION: Shortness of breath. Dizziness. COMPARISON: Chest radiograph, 02/08/2020 FINDINGS: Support devices: None. Heart: The cardiac silhouette is normal in size. Lungs/pleura: The lungs are clear of focal airspace disease or significant pleural effusion Additional findings: No significant acute abnormality. IMPRESSION: 1. No evidence of acute cardiopulmonary process. Signer Name: Rena Andrews MD Signed: 04/10/2020 9:22 PM Workstation Name: [id number]
--- NOTE | 2020-04-10 21:30 | Cat Scan Report ---
CT BRAIN: 04/10/2020 INDICATION / CLINICAL INFORMATION: dizziness. COMPARISON: CT brain 03/31/2020. CT brain 02/08/2020. CT brain 10/11/2019. FINDINGS: BRAIN/INTRACRANIAL STRUCTURES: Unenhanced CT images of the brain were obtained and compared to the pr ior exams. There is been no change. There is no evidence of acute abnormality. Slight age-related atrophic changes and chronic white tank er hypoattenuation are again noted. There is no evidence of acute ischemic injury, hemorrhage, or mass. There are no abnormal extra-axial fluid collections. Moderate paranasal sinus mucosal thickening is present, unchanged. EXTRACRANIAL STRUCTURES: Unremarkable. IMPRESSION: No acute abnormality. Stable chronic and age-related changes. All CT scans at this location are performed using dose reduction to ALARA by means of automated expos ure control. Signer Name: Daljit Myrick MD Signed: 04/10/2020 9:25 PM Workstation Name: [id number]
[2020-04-10 21:39] LABS: Alanine Aminotransferase 10 units/L (7-56); Albumin 4.8 g/dL (3.9-5); BUN/Creatinine Ratio 15; Blood Urea Nitrogen 15 mg/dL (9-20); Calcium 9.8 mg/dL (8.4-10.2); Hemolysis Index 2
[2020-04-10 21:45] VITALS: BP 159/84
[2020-04-10 22:09] LABS: Bilirubin,Urine NEG (Negative); Blood,Urine NEG (Negative); Color,Urine Colorless (Yellow); Protein,Urine <15 mg/dL mg/dL (Negative); Urobilinogen,Urine < 2.0 mg/dL (<2.0)
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
[2020-04-10 22:27] LABS: RBC,Urine < 1.0 /HPF (0.0-6.0); WBC,Urine < 1.0 /HPF (0.0-6.0)
== END 2020-04-10 22:53 | disposition home or self-care (01) ==
LOC: ED 20:26
DX: R42 Dizziness and giddiness (principal); E87.1 Hypo-osmolality and hyponatremia; T50.905A Adverse effect of unspecified drugs, medicaments and biological substances, initial encounter; I10 Essential (primary) hypertension; J45.909 Unspecified asthma, uncomplicated; Z98.890 Other specified postprocedural states; Z79.899 Other long term (current) drug therapy; Y92.89 Other specified places as the place of occurrence of the external cause
CPT/HCPCS: 36415; 70450; 71046; 80053; 81001; 82550; 83735; 83880; 84484; 85025; 93005

== ENCOUNTER 2020-05-04 00:25 | Emergency (ER) | payer MEDICARE ==
--- NOTE | 2020-05-04 01:00 | Emergency Department Report ---
Blank Doc - Documentation Documentation: 75-year-old male that presents with uncontrolled hypertension. Patient stated he is compliant with medication. Otherwise denies any headaches or dizziness. Denies any other complaints. 1- This initial assessment/diagnostic orders/clinical plan/ treatment(s) is/are subject to change based on pt's health status, clinical progression and re- assessment by fellow clinical providers in the ED. Further treatment and workup at subsequent clinical provers discretion. Patient/guardians urged not to elope from ED as their condition may be serious if not clinically assessed and managed. 2-cardiac work-up
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
[2020-05-04 02:13] LABS: Basophils % (Auto) 0.4 % (0.0-1.8); Eosinophils # (Auto) 0.2 K/mm3 (0.0-0.4); Eosinophils % (Auto) 2.3 % (0.0-4.3); Hematocrit 34.7 % (35.5-45.6); Hemoglobin 11.6 gm/dl (11.8-15.2); Lymphocytes # (Auto) 1.4 K/mm3 (1.2-5.4); Lymphocytes % (Auto) 19.6 % (13.4-35.0); Mean Corpuscular HGB Conc 33 % (32-34); Mean Corpuscular Volume 84 fl (84-94); Monocytes # (Auto) 0.5 K/mm3 (0.0-0.8); Monocytes % (Auto) 7.4 % (0.0-7.3); Platelet Count 229 K/mm3 (140-440); Red Blood Count 4.11 M/mm3 (3.65-5.03); Red Cell Distribution Width 13.9 % (13.2-15.2)
[2020-05-04 02:29] LABS: INR 0.84 (0.87-1.13)
[2020-05-04 02:30] LABS: Partial Thromboplastin Time 25.2 Sec. (24.2-36.6)
[2020-05-04 02:32] LABS: Alanine Aminotransferase 12 units/L (7-56); Albumin 4.3 g/dL (3.9-5); BUN/Creatinine Ratio 16; Blood Urea Nitrogen 14 mg/dL (9-20); Calcium 8.3 mg/dL (8.4-10.2); Hemolysis Index 1
[2020-05-04] MEDS ORDERED: cloNIDine 0.2 MG TAB PO ONE (02:40)
[2020-05-04] MEDS ORDERED: HYDROcodone/ACETAMINOPHEN 5-325 MG TAB PO ONE (02:47)
[2020-05-04] MEDS ORDERED: SODIUM CHLORIDE 0.9% 1000 ML 1,000 ML IV ONE ×2 (02:51→02:52)
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
--- NOTE | 2020-05-04 05:04 | Cat Scan Report ---
CT HEAD WITHOUT CONTRAST INDICATION / CLINICAL INFORMATION: Hypertension, headache. TECHNIQUE: All CT scans at this location are performed using CT dose reduction for ALARA by means of automated e xposure control. COMPARISON: Head CT 04/10/2020 FINDINGS: HEMORRHAGE: None. EXTRA-AXIAL SPACES: Normal in size and morphology for the patient's age. VENTRICULAR SYSTEM: Normal in size and morphology for the patient's age. CEREBRAL PARENCHYMA: Mild microangiopathy, unchanged. Stable idiopathic bilateral basal ganglia calci fications No significant abnormality. No acute territorial infarct. MIDLINE SHIFT OR HERNIATION: None. CEREBELLUM / BRAINSTEM: No significant abnormality. ORBITS: Normal as visualized. SOFT TISSUES of HEAD: No significant abnormality. CALVARIUM: No significant abnormality. PARANASAL SINUSES / MASTOID AIR CELLS: Left maxillary mucus retention cyst, bilateral frontal sinuses and right maxillary sinus mucosal thickening, unchanged. ADDITIONAL FINDINGS: None. IMPRESSION: 1. No acute intracranial abnormality. 2. Microangiopathy 3. Chronic mucosal sinus disease Signer Name: Riaz Lance MD Signed: 05/04/2020 4:59 AM Workstation Name: [id number]
[2020-05-04 05:30] VITALS: BP 174/110
--- NOTE | 2020-05-04 10:20 | Electrocardiograph Report ---
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
== END 2020-05-04 06:26 | disposition home or self-care (01) ==
LOC: ED 00:25
DX: I10 Essential (primary) hypertension (principal); E87.1 Hypo-osmolality and hyponatremia; K21.9 Gastro-esophageal reflux disease without esophagitis; J45.909 Unspecified asthma, uncomplicated; Z87.891 Personal history of nicotine dependence; Z79.899 Other long term (current) drug therapy
CPT/HCPCS: 36415; 51702; 70450; 71046; 80053; 84295; 84484; 85025; 85610; 85730; 93005; 96360; 96361; 99285; J7030

== ENCOUNTER 2020-08-15 20:00 | Emergency (ER) | payer MEDICARE ==
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
[2020-08-15] MEDS ORDERED: IPRATROPIUM/ALBUTEROL SULFATE 3 ML AMPUL.NEB IH ONE (21:18)
[2020-08-15] MEDS ORDERED: ACETAMINOPHEN 325 MG TAB PO ONE (21:19)
[2020-08-15] MEDS ORDERED: methylPREDNISolone Sod Succinate 125 MG/2 ML INJ IV ONE (21:19)
[2020-08-15] MEDS ORDERED: ASPIRIN 81 MG TAB CHEW PO ONE (21:27)
[2020-08-15 21:45] LABS: Basophils # (Auto) 0.1 K/mm3 (0.0-0.1); Basophils % (Auto) 1.2 % (0.0-1.8); Eosinophils # (Auto) 0.1 K/mm3 (0.0-0.4); Eosinophils % (Auto) 2.1 % (0.0-4.3); Hematocrit 34.3 % (35.5-45.6); Hemoglobin 11.6 gm/dl (11.8-15.2); Lymphocytes % (Auto) 28.7 % (13.4-35.0); Mean Corpuscular HGB Conc 34 % (32-34); Mean Corpuscular Volume 86 fl (84-94); Monocytes # (Auto) 0.5 K/mm3 (0.0-0.8); Monocytes % (Auto) 7.7 % (0.0-7.3); Platelet Count 206 K/mm3 (140-440); Red Blood Count 3.99 M/mm3 (3.65-5.03); Red Cell Distribution Width 13.8 % (13.2-15.2)
--- NOTE | 2020-08-15 21:58 | XRay Report ---
CHEST 1 VIEW 08/15/2020 9:46 PM INDICATION / CLINICAL INFORMATION: chest tightness. COMPARISON: 05/04/2020 FINDINGS: SUPPORT DEVICES: None. HEART / MEDIASTINUM: No significant abnormality. LUNGS / PLEURA: Mild basilar atelectasis. No significant infiltrate. No pneumothorax. ADDITIONAL FINDINGS: No significant additional findings. IMPRESSION: Mild basilar atelectasis. Signer Name: Bill Mccarthy MD Signed: 08/15/2020 9:54 PM Workstation Name: [id number]
[2020-08-15 22:03] LABS: Alanine Aminotransferase 12 units/L (7-56); Albumin 3.9 g/dL (3.9-5); BUN/Creatinine Ratio 13; Blood Urea Nitrogen 14 mg/dL (9-20); Calcium 8.7 mg/dL (8.4-10.2); Hemolysis Index 43
[2020-08-15] MEDS ORDERED: SODIUM CHLORIDE 0.9% 500 ML 500 ML IV ONE (22:19)
--- NOTE | 2020-08-16 02:56 | Nuclear Medicine Report ---
NUCLEAR MEDICINE PERFUSION LUNG SCAN INDICATION / CLINICAL INFORMATION: elevated dimer; prev dvt; dyspnea and chest tightn. TECHNIQUE: 4.9 mCi of Tc-99m MAA were given by IV. COMPARISON: Chest radiograph dated yesterday 08/15/2020. FINDINGS: PERFUSION: No suspicious segmental perfusion defects. ADDITIONAL FINDINGS: None. IMPRESSION: 1. Low probability for pulmonary embolism. Signer Name: Nabor Serrano MD Signed: 08/16/2020 2:51 AM Workstation Name: [id number]
[2020-08-16 03:02] VITALS: BP 157/72
--- NOTE | 2020-08-20 10:56 | Electrocardiograph Report ---
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 Electronically Signed On 08-20-2020 10:55:45 EDT by Brian Ryan
== END 2020-08-16 06:04 | disposition home or self-care (01) ==
LOC: ED 20:00
DX: I10 Essential (primary) hypertension (principal); R07.89 Other chest pain; K21.9 Gastro-esophageal reflux disease without esophagitis; J45.909 Unspecified asthma, uncomplicated; Z98.890 Other specified postprocedural states; Z79.899 Other long term (current) drug therapy
CPT/HCPCS: 36415; 71045; 78580; 80053; 83735; 83880; 84484; 85025; 85379; 93005; 94640; 96374; 99285; A9540; J2930; 94644; 99284

== ENCOUNTER 2020-09-14 18:51 | Inpatient (IN) | payer MEDICARE ==
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
--- NOTE | 2020-09-14 22:06 | Event Note ---
ED Screening Note Date of service: 09/14/20 Time: 22:04 ED Screening Note: 75-year-old male with a known history of asthma and hypertension presents to the ER today with complaints of shortness of breath and dizziness. Patient states that his symptoms started 3 days ago. Patient states that he noticed that every time he exerts himself he gets very short of breath and dizzy. He states that he has been wheezing. He states that he has been using his nebulizer machine and his albuterol MDI without much relief of his symptoms. Reports associated headache but denies any chest pain, lower extremity swelling, nausea, vomiting, fever or chills. Patient states that he has never had to be admitted for his asthma. This initial assessment/diagnostic orders/clinical plan/treatment(s) is/are subject to change based on patients health status, clinical progression and re- assessment by fellow clinical providers in the ED. Further treatment and workup at subsequent clinical providers discretion. Patient/guardian urged not to elope from the ED as their condition may be serious if not clinically assessed and managed. Initial orders include: Dyspnea order set
[2020-09-14 22:19] LABS: Basophils # (Auto) 0.1 K/mm3 (0.0-0.1); Basophils % (Auto) 0.7 % (0.0-1.8); Eosinophils # (Auto) 0.3 K/mm3 (0.0-0.4); Eosinophils % (Auto) 3.5 % (0.0-4.3); Hematocrit 33.9 % (35.5-45.6); Hemoglobin 11.3 gm/dl (11.8-15.2); Lymphocytes # (Auto) 2.1 K/mm3 (1.2-5.4); Lymphocytes % (Auto) 27.7 % (13.4-35.0); Mean Corpuscular HGB Conc 34 % (32-34); Mean Corpuscular Volume 86 fl (84-94); Monocytes # (Auto) 0.7 K/mm3 (0.0-0.8); Monocytes % (Auto) 9.5 % (0.0-7.3); Platelet Count 219 K/mm3 (140-440); Red Blood Count 3.95 M/mm3 (3.65-5.03); Red Cell Distribution Width 13.2 % (13.2-15.2)
[2020-09-14 22:32] LABS: Alanine Aminotransferase 14 units/L (7-56); Albumin 4.1 g/dL (3.9-5); BUN/Creatinine Ratio 8; Blood Urea Nitrogen 8 mg/dL (9-20); Calcium 9.2 mg/dL (8.4-10.2); Hemolysis Index 6
[2020-09-14] MEDS ORDERED: ACETAMINOPHEN 500 MG TAB PO ONE (22:39)
[2020-09-15] MEDS ORDERED: MAGNESIUM SULFATE 2 GM/50 ML BAG IV ONE (08:01)
[2020-09-15] MEDS ORDERED: dexAMETHasone 20 MG/5 ML VIAL IV ONE (08:01)
[2020-09-15] MEDS ORDERED: IPRATROPIUM 0.02% NEBU 2.5 ML IH ONE (08:01)
[2020-09-15] MEDS ORDERED: ALBUTEROL 2.5 MG/3 ML NEBU IH ONE ×2 (08:01→19:49)
[2020-09-15] MEDS ORDERED: SODIUM CHLORIDE 0.9% 1000 ML 1,000 ML IV ONE (08:03)
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
--- NOTE | 2020-09-15 14:13 | History and Physical Report ---
History of Present Illness Date of examination: 09/15/20 Date of admission: 09/15/20 08:27 Chief complaint: Shortness of breath and wheezing History of present illness: 75-year-old -[place] male with a surgical history of a kidney removal in 1991 and a past medical history of asthma and hypertension he presents to the emergency room complaining of difficulty breathing. Patient states that when he walks he has worsening short of breath. Patient reports he has been vaccinated and denies any positive contact. Patient reports he was given himself nebs at home but not working. Patient is unaware of his hypertension medication. States that he has been coughing since Monday. MD Complaint: shortness of breath Onset/Timin -: days(s) Pain Scale: 8 Consistency: constant Improves With: bronchodilators Worsens With: movement, coughing, inspiration Known History Of: asthma, other (Hypertension) Associated Symptoms: cough Treatments Prior to Arrival: bronchodilator Past History Past Medical History: COPD, hypertension, hyperlipidemia Past Surgical History: No surgical history Social history: lives with family, full code Family history: hypertension Medications and Allergies Allergies Allergy/AdvReac Type Severity Reaction Status Date / Time No Known Allergies Allergy Verified 08/15/20 20:47 Home Medications Medication Instructions Recorded Confirmed Last Taken Type Doxazosin 2 mg PO QDAY 10/11/19 04/01/20 Unknown History Advair Diskus 250-50 mcg 250 mcg INHALATION BID 30 Days 04/02/20 Unknown Rx Arformoterol Nebu [Brovana Nebu] 15 mcg IH Q12HRT ml 04/02/20 Unknown Rx Budesonide [Pulmicort Respules] 0.5 mg IH Q12HRT nebu 04/02/20 Unknown Rx Esomeprazole Magnesium 20 mg PO QDAY #30 04/02/20 Unknown Rx Ferrous Sulfate 324 MG 325 mg PO QDAY #30 04/02/20 Unknown Rx Losartan [Cozaar] 50 mg PO QDAY #30 tablet 04/02/20 Unknown Rx Meclizine [Antivert] 25 mg PO TID PRN #20 tablet 04/02/20 Unknown Rx ProAir HFA Inhaler 90 mcg INHALATION Q4HR PRN 30 Days 04/02/20 Unknown Rx Remeron 45mg TAB 45 mg TRANSLINGU QHS #30 04/02/20 Unknown Rx Rosuvastatin (Nf) 40 mg PO Q12HR #60 04/02/20 Unknown Rx Vitamin D2 50,000 units PO QWEEK #4 04/02/20 Unknown Rx amLODIPine 10 mg PO DAILY #30 tab 04/02/20 Unknown Rx Review of Systems All systems: negative Exam - Constitutional Vitals: Temp Pulse Resp BP Pulse Ox 98.7 F 80 20 131/81 95 09/15/20 09:07 09/15/20 09:07 09/15/20 09:07 09/15/20 09:07 09/15/20 09:10 General appearance: Present: no acute distress, well-nourished - EENT Eyes: Present: PERRL ENT: hearing intact, clear oral mucosa - Neck Neck: Present: supple, normal ROM - Respiratory Respiratory effort: normal Respiratory: bilateral: CTA, rhonchi, wheezing - Cardiovascular Heart rate: 78 Rhythm: regular Heart Sounds: Present: S1 & S2. Absent: rub, click - Extremities Extremities: pulses symmetrical, No edema Peripheral Pulses: within normal limits - Abdominal General gastrointestinal: Present: soft, non-tender, non-distended, normal bowel sounds Male genitourinary: Present: normal - Integumentary Integumentary: Present: clear, warm, dry - Musculoskeletal Musculoskeletal: gait normal, strength equal bilaterally - Psychiatric Psychiatric: appropriate mood/affect, intact judgment & insight - Neurologic Neurologic: CNII-XII intact, moves all extremities HEART Score - HEART Score Troponin: Troponin T < 0.010 ng/mL (0.00-0.029) 09/14/20 21:48 Results - Labs CBC & Chem 7: 09/17/20 06:01 09/17/20 06:01 Labs: Laboratory Last Values WBC 7.5 K/mm3 (4.5-11.0) 09/14/20 21:48 RBC 3.95 M/mm3 (3.65-5.03) 09/14/20 21:48 Hgb 11.3 gm/dl (11.8-15.2) L 09/14/20 21:48 Hct 33.9 % (35.5-45.6) L 09/14/20 21:48 MCV 86 fl (84-94) 09/14/20 21:48 MCH 29 pg (28-32) 09/14/20 21:48 MCHC 34 % (32-34) 09/14/20 21:48 RDW 13.2 % (13.2-15.2) 09/14/20 21:48 Plt Count 219 K/mm3 (140-440) 09/14/20 21:48 Lymph % (Auto) 27.7 % (13.4-35.0) 09/14/20 21:48 [place] % (Auto) 9.5 % (0.0-7.3) H 09/14/20 21:48 Eos % (Auto) 3.5 % (0.0-4.3) 09/14/20 21:48 Baso % (Auto) 0.7 % (0.0-1.8) 09/14/20 21:48 Lymph # (Auto) 2.1 K/mm3 (1.2-5.4) 09/14/20 21:48 [place] # (Auto) 0.7 K/mm3 (0.0-0.8) 09/14/20 21:48 Eos # (Auto) 0.3 K/mm3 (0.0-0.4) 09/14/20 21:48 Baso # (Auto) 0.1 K/mm3 (0.0-0.1) 09/14/20 21:48 Seg Neutrophils % 58.6 % (40.0-70.0) 09/14/20 21:48 Seg Neutrophils # 4.4 K/mm3 (1.8-7.7) 09/14/20 21:48 Sodium 121 mmol/L (137-145) L 09/14/20 21:48 Potassium 3.7 mmol/L (3.6-5.0) 09/14/20 21:48 Chloride 84.6 mmol/L (98-107) L 09/14/20 21:48 Carbon Dioxide 26 mmol/L (22-30) 09/14/20 21:48 Anion Gap 14 mmol/L 09/14/20 21:48 BUN 8 mg/dL (9-20) L 09/14/20 21:48 Creatinine 1.0 mg/dL (0.8-1.3) 09/14/20 21:48 Estimated GFR > 60 ml/min 09/14/20 21:48 BUN/Creatinine Ratio 8 % 09/14/20 21:48 Glucose 89 mg/dL (75-100) 09/14/20 21:48 Calcium 9.2 mg/dL (8.4-10.2) 09/14/20 21:48 Total Bilirubin 0.40 mg/dL (0.1-1.2) 09/14/20 21:48 AST 27 units/L (5-40) 09/14/20 21:48 ALT 14 units/L (7-56) 09/14/20 21:48 Alkaline Phosphatase 62 units/L (35-129) 09/14/20 21:48 Troponin T < 0.010 ng/mL (0.00-0.029) 09/14/20 21:48 NT-Pro-B Natriuret Pep 297.1 pg/mL (0-900) 09/14/20 21:48 Total Protein 6.5 g/dL (6.3-8.2) 09/14/20 21:48 Albumin 4.1 g/dL (3.9-5) 09/14/20 21:48 Albumin/Globulin Ratio 1.7 % 09/14/20 21:48 Assessment and Plan Advance Directives: Yes Plan of care discussed with patient/family: Yes - Patient Problems (1) Acute respiratory failure with hypoxia Current Visit: Yes Status: Acute Plan to address problem: Patient is nebulizer treatments IV Solu-Medrol and IV Levaquin (2) Hyponatremia Current Visit: Yes Status: Acute Plan to address problem: Severe IV normal saline for now (3) Asthma Current Visit: Yes Status: Acute Qualifiers: Asthma severity: mild Plan to address problem: Nebulizer treatments as necessary (4) Hypertension Current Visit: Yes Status: Chronic Qualifiers: Hypertension type: primary hypertension Qualified Code(s): I10 - Essential (primary) hypertension Plan to address problem: Continue losartan and amlodipine (5) GERD (gastroesophageal reflux disease) Current Visit: Yes Status: Chronic Qualifiers: Esophagitis presence: without esophagitis Qualified Code(s): K21.9 - Gastro-esophageal reflux disease without esophagitis Plan to address problem: Continue PPIs (6) DVT prophylaxis Current Visit: No Status: Acute Plan to address problem: Heparin and GI prophylaxis for now
[2020-09-15] MEDS: HEPARIN 5,000 UNIT/1 ML VIAL SUB-Q SCH ×2 (14:59→23:06)
[2020-09-15] MEDS: FAMOTIDINE 20 MG/2 ML INJ IV SCH ×2 (14:59→23:39)
[2020-09-15] MEDS ORDERED: SODIUM CHLORIDE 0.9% 1000 ML 1,000 ML IV SCH (15:00)
[2020-09-15] MEDS ORDERED: ACETAMINOPHEN 325 MG TAB PO PRN (15:00)
[2020-09-15] MEDS ORDERED: METOCLOPRAMIDE 10 MG/2 ML INJ IV PRN (15:00)
[2020-09-15 15:12] LABS: Hemoglobin 12.4 gm/dl (11.8-15.2); Mean Corpuscular HGB Conc 34 % (32-34); Mean Corpuscular Volume 86 fl (84-94); Platelet Count 230 K/mm3 (140-440); Red Blood Count 4.32 M/mm3 (3.65-5.03); Red Cell Distribution Width 13.3 % (13.2-15.2)
[2020-09-15 15:40] LABS: Alanine Aminotransferase 18 units/L (7-56); Albumin 4.7 g/dL (3.9-5); BUN/Creatinine Ratio 11; Blood Urea Nitrogen 10 mg/dL (9-20); Calcium 9.6 mg/dL (8.4-10.2); Hemolysis Index 60
[2020-09-15 17:49] LABS: RBC Morphology Normal; Total Cells Counted 100
[2020-09-15 17:50] LABS: Platelet Estimate Consistent w Auto; Toxic Granulation 1+
--- NOTE | 2020-09-15 18:15 | Electrocardiograph Report ---
[facility] Test Date: 2020-09-15 Test Time: 12:57:15 Pat Name: ANDI FOREMAN Department: Room: [place] [address] Gender: M Contract Administration Coordinator: SOFIYA : 1945 Requested By: PATRICIA GIORDANO Order Number: [id number] Reading MD: Tameka Sanchez Measurements Intervals [place] Rate: 75 P: 18 AK: 165 QRS: 19 QRSD: 117 T: 36 QT: 396 QTc: 443 Interpretive Statements Sinus rhythm Nonspecific intraventricular conduction delay Low voltage, precordial leads Compared to ECG 08/15/2020 20:21:59 No significant change Electronically Signed On 09-15-2020 18:15:27 EDT by Tameka Sanchez
[2020-09-15] MEDS: IPRATROPIUM 0.02% NEBU 2.5 ML IH SCH (20:16)
[2020-09-15] MEDS: ONDANSETRON 4 MG/2 ML INJ IV PRN (23:05)
[2020-09-16 05:15] LABS: Basophils # (Auto) 0.1 K/mm3 (0.0-0.1); Basophils % (Auto) 0.6 % (0.0-1.8); Hematocrit 37.1 % (35.5-45.6); Hemoglobin 12.5 gm/dl (11.8-15.2); Lymphocytes # (Auto) 0.9 K/mm3 (1.2-5.4); Lymphocytes % (Auto) 9.3 % (13.4-35.0); Mean Corpuscular HGB Conc 34 % (32-34); Mean Corpuscular Volume 85 fl (84-94); Monocytes # (Auto) 0.6 K/mm3 (0.0-0.8); Monocytes % (Auto) 6.8 % (0.0-7.3); Platelet Count 274 K/mm3 (140-440); Red Blood Count 4.36 M/mm3 (3.65-5.03); Red Cell Distribution Width 13.5 % (13.2-15.2)
[2020-09-16 05:31] LABS: Albumin 4.7 g/dL (3.9-5); Calcium 10.1 mg/dL (8.4-10.2)
[2020-09-16] MEDS ORDERED: HALOPERIDOL LACTATE 5 MG/1 ML INJ IM ONE (05:34)
[2020-09-16] MEDS ORDERED: PROAIR 90 MCG INHALATION PRN (08:45)
--- NOTE | 2020-09-16 08:49 | Progress Note ---
Assessment and Plan - Patient Problems (1) COPD exacerbation Current Visit: Yes Status: Acute Plan to address problem: Patient on duo nebs and Solu-Medrol and antibiotics (2) COPD exacerbation Current Visit: Yes Status: Acute (3) Hyponatremia Current Visit: Yes Status: Acute Plan to address problem: Severe IV normal saline for now Hyponatremia not improving because patient keeps pulling his IV (4) Acute respiratory failure with hypoxia Current Visit: Yes Status: Acute Plan to address problem: Patient is nebulizer treatments IV Solu-Medrol and IV Levaquin (5) Asthma Current Visit: Yes Status: Acute Qualifiers: Asthma severity: mild Plan to address problem: Nebulizer treatments as necessary (6) Hypertension Current Visit: Yes Status: Chronic Qualifiers: Hypertension type: primary hypertension Qualified Code(s): I10 - Essential (primary) hypertension Plan to address problem: Continue losartan and amlodipine (7) GERD (gastroesophageal reflux disease) Current Visit: Yes Status: Chronic Qualifiers: Esophagitis presence: without esophagitis Qualified Code(s): K21.9 - Gastro-esophageal reflux disease without esophagitis Plan to address problem: Continue PPIs (8) DVT prophylaxis Current Visit: No Status: Acute Plan to address problem: Heparin and GI prophylaxis for now Subjective Date of service: 09/16/20 Principal diagnosis: Acute respiratory failure with hypoxia Interval history: Patient admitted for COPD exacerbation and hyponatremia Continues to be wheezing Objective - Constitutional Vitals: Vital Signs - 12hr 09/15/20 09/16/20 09/16/20 23:15 01:36 01:51 Temperature 97.1 F L 98.1 F Pulse Rate 88 94 H Respiratory 19 18 Rate Blood Pressure 123/79 Blood Pressure 134/80 [Right] O2 Sat by Pulse 97 95 93 Oximetry 09/16/20 04:50 Temperature 97.6 F Pulse Rate 103 H Respiratory 18 Rate Blood Pressure 139/75 Blood Pressure [Right] O2 Sat by Pulse 93 Oximetry General appearance: Present: no acute distress, well-nourished - EENT Eyes: PERRL, EOM intact ENT: hearing intact, clear oral mucosa Ears: bilateral: normal - Neck Neck: supple, normal ROM - Respiratory Respiratory effort: normal Respiratory: bilateral: CTA, rhonchi, wheezing - Breasts Breasts: normal - Cardiovascular Heart rate: 88 Rhythm: regular Heart Sounds: Present: S1 & S2. Absent: gallop, rub Extremities: pulses intact, No edema, normal color, Full ROM - Gastrointestinal General gastrointestinal: Present: soft, non-tender, non-distended, normal bowel sounds - Genitourinary Male genitourinary: normal - Integumentary Integumentary: clear, warm, dry - Musculoskeletal Musculoskeletal: 1, strength equal bilaterally - Neurologic Neurologic: moves all extremities - Psychiatric Psychiatric: memory intact, appropriate mood/affect, intact judgment & insight - Labs CBC & Chem 7: 09/17/20 06:01 09/17/20 06:01 Labs: Abnormal lab results 09/15/20 09/15/20 09/15/20 Range/Units 14:37 14:37 14:37 Lymph % (Auto) (13.4-35.0) % Lymph # (Auto) (1.2-5.4) K/mm3 Seg Neutrophils % (40.0-70.0) % Seg Neuts % (Manual) 98.0 H (40.0-70.0) % Lymphocytes % (Manual) 1.0 L (13.4-35.0) % Lymphocytes # (Manual) 0.1 L (1.2-5.4) K/mm3 Sodium 126 L (137-145) mmol/L Potassium (3.6-5.0) mmol/L Chloride 87.3 L (98-107) mmol/L Creatinine (0.8-1.3) mg/dL Glucose 134 H (75-100) mg/dL Hemoglobin A1c 6.3 H (4-6) % 09/16/20 09/16/20 Range/Units 04:39 04:39 Lymph % (Auto) 9.3 L (13.4-35.0) % Lymph # (Auto) 0.9 L (1.2-5.4) K/mm3 Seg Neutrophils % 83.3 H (40.0-70.0) % Seg Neuts % (Manual) (40.0-70.0) % Lymphocytes % (Manual) (13.4-35.0) % Lymphocytes # (Manual) (1.2-5.4) K/mm3 Sodium 126 L (137-145) mmol/L Potassium 5.3 H (3.6-5.0) mmol/L Chloride 86.8 L (98-107) mmol/L Creatinine 1.4 H D (0.8-1.3) mg/dL Glucose 117 H (75-100) mg/dL Hemoglobin A1c (4-6) % HEART Score - HEART Score Troponin: Troponin T < 0.010 ng/mL (0.00-0.029) 09/14/20 21:48
[2020-09-16] MEDS: IPRATROPIUM 0.02% NEBU 2.5 ML IH SCH ×4 (09:15→21:39)
[2020-09-16] MEDS ORDERED: DOXAZOSIN 2 MG PO SCH (10:00)
[2020-09-16] MEDS ORDERED: ADVAIR INHALATION SCH (10:00)
[2020-09-16] MEDS ORDERED: NON-FORMULARY EACH (Esomeprazole Magnesium 20 MG) PO SCH (10:00)
[2020-09-16] MEDS ORDERED: ROSUVASTATIN 40 MG PO SCH (10:00)
[2020-09-16] MEDS ORDERED: FERROUS SULFATE PO SCH (10:00)
[2020-09-16] MEDS ORDERED: ALBUTEROL 2.5 MG/3 ML NEBU IH PRN ×2 (13:00)
[2020-09-16] MEDS ORDERED: MECLIZINE 25 MG TAB PO PRN (13:00)
[2020-09-16] MEDS: HEPARIN 5,000 UNIT/1 ML VIAL SUB-Q SCH ×2 (13:35→22:13)
[2020-09-16] MEDS: LOSARTAN 50 MG TAB PO SCH (13:48)
[2020-09-16] MEDS: BUDESONIDE 0.5 MG/2 ML NEBU IH SCH ×2 (14:20→21:38)
[2020-09-16] MEDS: FERROUS SULFATE 325 MG TAB PO SCH (15:00)
[2020-09-16] MEDS: amLODIPine 10 MG TAB PO SCH (15:15)
[2020-09-16] MEDS: ARFORMOTEROL 15 MCG/2 ML NEBU IH SCH (21:38)
[2020-09-16] MEDS ORDERED: REMERON TRANSLINGU SCH (22:00)
[2020-09-16] MEDS: oxyCODONE /ACETAMINOPHEN 5-325MG TAB PO PRN (22:16)
[2020-09-16] MEDS ORDERED: methylPREDNISolone Sod Suc 125 MG in SODIUM CHLORIDE 0.9% 100 ML IV ONE (22:32)
[2020-09-16] MEDS ORDERED: methylPREDNISolone Sod Succinate 125 MG/2 ML INJ IV ONE (22:39)
[2020-09-16] MEDS: MIRTAZAPINE 15 MG SOLUTAB PO SCH (22:41)
[2020-09-16] MEDS: ONDANSETRON 4 MG/2 ML INJ IV PRN ×2 (23:08→23:10)
[2020-09-17] MEDS ORDERED: diphenhydrAMINE 50 MG/ML VIAL IV ONE (02:08)
[2020-09-17 06:31] LABS: Hematocrit 33.7 % (35.5-45.6); Hemoglobin 11.3 gm/dl (11.8-15.2); Mean Corpuscular HGB Conc 34 % (32-34); Mean Corpuscular Volume 87 fl (84-94); Platelet Count 243 K/mm3 (140-440); Red Blood Count 3.87 M/mm3 (3.65-5.03); Red Cell Distribution Width 13.6 % (13.2-15.2)
[2020-09-17 06:56] LABS: Albumin 4.4 g/dL (3.9-5); Calcium 9.4 mg/dL (8.4-10.2)
[2020-09-17] MEDS: ARFORMOTEROL 15 MCG/2 ML NEBU IH SCH ×2 (08:14→21:53)
[2020-09-17] MEDS: IPRATROPIUM 0.02% NEBU 2.5 ML IH SCH ×3 (08:14→21:53)
[2020-09-17] MEDS: BUDESONIDE 0.5 MG/2 ML NEBU IH SCH ×2 (08:14→21:53)
[2020-09-17] MEDS: HEPARIN 5,000 UNIT/1 ML VIAL SUB-Q SCH ×2 (09:34→21:42)
[2020-09-17] MEDS: DOXAZOSIN 1 MG TAB PO SCH (09:34)
[2020-09-17] MEDS: amLODIPine 10 MG TAB PO SCH (09:34)
[2020-09-17] MEDS: PANTOPRAZOLE 20 MG TAB PO SCH (09:34)
[2020-09-17] MEDS: FERROUS SULFATE 325 MG TAB PO SCH (09:34)
[2020-09-17] MEDS: LOSARTAN 50 MG TAB PO SCH (09:34)
[2020-09-17] MEDS ORDERED: LORazepam 2 MG/ML VIAL IV NR (10:21)
[2020-09-17] MEDS: SODIUM CHLORIDE 0.9% 1000 ML 1,000 ML IV SCH ×2 (10:33→21:38)
[2020-09-17 11:16] LABS: Total Cells Counted 100
[2020-09-17 11:17] LABS: Platelet Estimate Consistent w Auto; RBC Morphology Normal
[2020-09-17] MEDS ORDERED: IPRATROPIUM/ALBUTEROL SULFATE 3 ML AMPUL.NEB IH PRN (17:33)
[2020-09-17] MEDS: methylPREDNISolone Sod Succinate 125 MG/2 ML INJ IV SCH ×2 (18:31→21:07)
[2020-09-17] MEDS: MIRTAZAPINE 15 MG SOLUTAB PO SCH (21:39)
[2020-09-17] MEDS: IPRATROPIUM/ALBUTEROL SULFATE 3 ML AMPUL.NEB IH SCH (21:53)
[2020-09-18] MEDS: LORazepam 2 MG/ML VIAL IV PRN ×2 (04:09→15:06)
[2020-09-18] MEDS: methylPREDNISolone Sod Succinate 125 MG/2 ML INJ IV SCH ×3 (06:16→22:00)
--- NOTE | 2020-09-18 07:02 | Progress Note ---
Assessment and Plan - Patient Problems (1) Acute respiratory failure with hypoxia Current Visit: Yes Status: Acute Plan to address problem: Patient is nebulizer treatments IV Solu-Medrol and IV Levaquin (2) COPD exacerbation Current Visit: Yes Status: Acute Plan to address problem: Patient on duo nebs and Solu-Medrol and antibiotics (3) Hyponatremia Current Visit: Yes Status: Acute Plan to address problem: Severe IV normal saline for now Hyponatremia not improving because patient keeps pulling his IV (4) Asthma Current Visit: Yes Status: Acute Qualifiers: Asthma severity: mild Plan to address problem: Nebulizer treatments as necessary (5) Hypertension Current Visit: Yes Status: Chronic Qualifiers: Hypertension type: primary hypertension Qualified Code(s): I10 - Essential (primary) hypertension Plan to address problem: Continue losartan and amlodipine (6) GERD (gastroesophageal reflux disease) Current Visit: Yes Status: Chronic Qualifiers: Esophagitis presence: without esophagitis Qualified Code(s): K21.9 - Gastro-esophageal reflux disease without esophagitis Plan to address problem: Continue PPIs (7) DVT prophylaxis Current Visit: No Status: Acute Plan to address problem: Heparin and GI prophylaxis for now Subjective Date of service: 09/17/20 Principal diagnosis: Acute respiratory failure with hypoxia Interval history: Patient admitted for COPD exacerbation and hyponatremia Continues to be wheezing No improvement since yesterday Objective - Constitutional Vitals: Vital Signs - 12hr 09/17/20 09/17/20 09/18/20 21:50 22:00 02:00 Temperature Pulse Rate Pulse Rate [ 115 H Bilateral] Respiratory Rate Respiratory 20 Rate [Bilateral ] Blood Pressure [Right] O2 Sat by Pulse 97 98 Oximetry 09/18/20 06:13 Temperature 97.6 F Pulse Rate 87 Pulse Rate [ Bilateral] Respiratory 18 Rate Respiratory Rate [Bilateral ] Blood Pressure 109/55 [Right] O2 Sat by Pulse 96 Oximetry General appearance: Present: no acute distress, mild distress, well-nourished - EENT Eyes: PERRL, EOM intact ENT: hearing intact, clear oral mucosa Ears: bilateral: normal - Neck Neck: supple, normal ROM - Respiratory Respiratory effort: normal Respiratory: bilateral: CTA, rhonchi, wheezing - Breasts Breasts: normal - Cardiovascular Heart rate: 78 Rhythm: regular Heart Sounds: Present: S1 & S2. Absent: gallop, rub Extremities: pulses intact, No edema, normal color, Full ROM - Gastrointestinal General gastrointestinal: Present: soft, non-tender, non-distended, normal bowel sounds - Genitourinary Male genitourinary: normal - Integumentary Integumentary: clear, warm, dry - Musculoskeletal Musculoskeletal: 1, strength equal bilaterally - Neurologic Neurologic: moves all extremities - Psychiatric Psychiatric: memory intact, appropriate mood/affect, intact judgment & insight - Labs CBC & Chem 7: 09/17/20 06:01 09/17/20 06:01 Labs: Abnormal lab results 09/17/20 Range/Units 06:01 Seg Neutrophils # Man 9.0 H (1.8-7.7) K/mm3 Lymphocytes # (Manual) 0.0 L (1.2-5.4) K/mm3 HEART Score - HEART Score Troponin: Troponin T < 0.010 ng/mL (0.00-0.029) 09/14/20 21:48
[2020-09-18] MEDS: FERROUS SULFATE 325 MG TAB PO SCH (09:36)
[2020-09-18] MEDS: PANTOPRAZOLE 20 MG TAB PO SCH (09:38)
[2020-09-18] MEDS: HEPARIN 5,000 UNIT/1 ML VIAL SUB-Q SCH ×2 (09:39→22:49)
[2020-09-18] MEDS: DOXAZOSIN 1 MG TAB PO SCH (09:39)
[2020-09-18] MEDS: LOSARTAN 50 MG TAB PO SCH (09:39)
[2020-09-18] MEDS: amLODIPine 10 MG TAB PO SCH (09:40)
[2020-09-18] MEDS: IPRATROPIUM/ALBUTEROL SULFATE 3 ML AMPUL.NEB IH SCH ×4 (10:15→23:57)
--- NOTE | 2020-09-18 11:17 | Progress Note ---
Assessment and Plan Assessment and plan: --Severe metabolic encephalopathy; Current Visit: Yes Status: Acute Patient is severely agitated confused Requiring restraints Probably secondary to underlying hypoxia Hyponatremia Treat the underlying cause Supportive care --Severe hyponatremia Current Visit: Yes Status: Acute IV normal saline , closely monitor sodium levels Oral sodium chloride, slow correction -- Acute respiratory failure with hypoxia Current Visit: Yes Status: Acute Plan to address problem: Patient is nebulizer treatments IV Solu-Medrol and IV Levaquin -- COPD exacerbation Current Visit: Yes Status: Acute Patient on duo nebs and Solu-Medrol and antibiotics -- Asthma Current Visit: Yes Status: Acute Nebulizer treatments as necessary -- Hypertension Current Visit: Yes Status: Chronic Continue losartan and amlodipine --GERD (gastroesophageal reflux disease) Current Visit: Yes Status: Chronic Continue PPIs -- DVT prophylaxis Current Visit: No Status: Acute Heparin and GI prophylaxis for now History Interval history: Seen and examined the patient at the bedside Patient's tests and reports, charts and medications reviewed Patient is in mild distress confused Agitated and getting out of the bed Severely hyponatremic Vital signs noted Hospitalist Physical - Constitutional Vitals: Temp Pulse Resp BP Pulse Ox 98.3 F 81 20 149/70 96 09/18/20 07:58 09/18/20 07:58 09/18/20 07:58 09/18/20 07:58 09/18/20 08:50 General appearance: Present: mild distress, well-nourished, obese, other (Confused and agitated) - EENT Eyes: Present: PERRL, EOM intact - Neck Neck: Present: supple, normal ROM - Respiratory Respiratory effort: normal Respiratory: bilateral: diminished, negative: rales, rhonchi, wheezing - Cardiovascular Rhythm: regular Heart Sounds: Present: S1 & S2 - Extremities Extremities: no ischemia, No edema - Abdominal General gastrointestinal: soft, non-tender, non-distended, normal bowel sounds - Integumentary Integumentary: Present: clear, warm - Psychiatric Psychiatric: agitated, other - Neurologic Neurologic: moves all extremities (Confused), other (Agitated, confused) HEART Score - HEART Score Troponin: Troponin T < 0.010 ng/mL (0.00-0.029) 09/14/20 21:48 Results - Labs CBC & Chem 7: 09/17/20 06:01 09/17/20 06:01 Labs: Laboratory Last Values WBC 9.0 K/mm3 (4.5-11.0) 09/17/20 06:01 RBC 3.87 M/mm3 (3.65-5.03) 09/17/20 06:01 Hgb 11.3 gm/dl (11.8-15.2) L 09/17/20 06:01 Hct 33.7 % (35.5-45.6) L 09/17/20 06:01 MCV 87 fl (84-94) 09/17/20 06:01 MCH 29 pg (28-32) 09/17/20 06:01 MCHC 34 % (32-34) 09/17/20 06:01 RDW 13.6 % (13.2-15.2) 09/17/20 06:01 Plt Count 243 K/mm3 (140-440) 09/17/20 06:01 Lymph % (Auto) 9.3 % (13.4-35.0) L 09/16/20 04:39 [place] % (Auto) 6.8 % (0.0-7.3) 09/16/20 04:39 Eos % (Auto) 0.0 % (0.0-4.3) 09/16/20 04:39 Baso % (Auto) 0.6 % (0.0-1.8) 09/16/20 04:39 Lymph # (Auto) 0.9 K/mm3 (1.2-5.4) L 09/16/20 04:39 [place] # (Auto) 0.6 K/mm3 (0.0-0.8) 09/16/20 04:39 Eos # (Auto) 0.0 K/mm3 (0.0-0.4) 09/16/20 04:39 Baso # (Auto) 0.1 K/mm3 (0.0-0.1) 09/16/20 04:39 Add Manual Diff Complete 09/17/20 06:01 Total Counted 100 09/17/20 06:01 Seg Neutrophils % Circular Ripsaw Operator 09/17/20 06:01 Seg Neuts % (Manual) 98.0 % (40.0-70.0) H 09/15/20 14:37 Lymphocytes % (Manual) 1.0 % (13.4-35.0) L 09/15/20 14:37 Eosinophils % (Manual) 1.0 % (0.0-4.3) 09/15/20 14:37 Nucleated RBC % Not Reportable 09/17/20 06:01 Seg Neutrophils # 7.7 K/mm3 (1.8-7.7) 09/16/20 04:39 Seg Neutrophils # Man 9.0 K/mm3 (1.8-7.7) H 09/17/20 06:01 Band Neutrophils # 0.0 K/mm3 09/17/20 06:01 Lymphocytes # (Manual) 0.0 K/mm3 (1.2-5.4) L 09/17/20 06:01 Abs React Lymphs (Man) 0.0 K/mm3 09/17/20 06:01 Monocytes # (Manual) 0.0 K/mm3 (0.0-0.8) 09/17/20 06:01 Eosinophils # (Manual) 0.0 K/mm3 (0.0-0.4) 09/17/20 06:01 Basophils # (Manual) 0.0 K/mm3 (0.0-0.1) 09/17/20 06:01 Metamyelocytes # 0.0 K/mm3 09/17/20 06:01 Myelocytes # 0.0 K/mm3 09/17/20 06:01 Promyelocytes # 0.0 K/mm3 09/17/20 06:01 Blast Cells # 0.0 K/mm3 09/17/20 06:01 WBC Morphology Not Reportable 09/17/20 06:01 Hypersegmented Neuts Not Reportable 09/17/20 06:01 Hyposegmented Neuts Not Reportable 09/17/20 06:01 Hypogranular Neuts Not Reportable 09/17/20 06:01 Smudge Cells Not Reportable 09/17/20 06:01 Toxic Granulation Not Reportable 09/17/20 06:01 Toxic Vacuolation Not Reportable 09/17/20 06:01 Dohle Bodies Not Reportable 09/17/20 06:01 Pelger-Huet Anomaly Not Reportable 09/17/20 06:01 Clifford Rods Not Reportable 09/17/20 06:01 Platelet Estimate Consistent w auto 09/17/20 06:01 Clumped Platelets Not Reportable 09/17/20 06:01 Plt Clumps, EDTA Not Reportable 09/17/20 06:01 Large Platelets Not Reportable 09/17/20 06:01 Giant Platelets Not Reportable 09/17/20 06:01 Platelet Satelliting Not Reportable 09/17/20 06:01 Plt Morphology Comment Not Reportable 09/17/20 06:01 RBC Morphology Normal 09/17/20 06:01 Dimorphic RBCs Not Reportable 09/17/20 06:01 Polychromasia Not Reportable 09/17/20 06:01 Hypochromasia Not Reportable 09/17/20 06:01 Poikilocytosis Not Reportable 09/17/20 06:01 Anisocytosis Not Reportable 09/17/20 06:01 Microcytosis Not Reportable 09/17/20 06:01 Macrocytosis Not Reportable 09/17/20 06:01 Spherocytes Not Reportable 09/17/20 06:01 Pappenheimer Bodies Not Reportable 09/17/20 06:01 Sickle Cells Not Reportable 09/17/20 06:01 Target Cells Not Reportable 09/17/20 06:01 Tear Drop Cells Not Reportable 09/17/20 06:01 Ovalocytes Not Reportable 09/17/20 06:01 Helmet Cells Not Reportable 09/17/20 06:01 [place] Bodies Not Reportable 09/17/20 06:01 [place] Rings Not Reportable 09/17/20 06:01 [place] Cells Not Reportable 09/17/20 06:01 Bite Cells Not Reportable 09/17/20 06:01 Crenated Cell Not Reportable 09/17/20 06:01 Elliptocytes Not Reportable 09/17/20 06:01 Acanthocytes (Spur) Not Reportable 09/17/20 06:01 Rouleaux Not Reportable 09/17/20 06:01 Hemoglobin C Crystals Not Reportable 09/17/20 06:01 Schistocytes Not Reportable 09/17/20 06:01 Malaria parasites Not Reportable 09/17/20 06:01 Jordi Bodies Not Reportable 09/17/20 06:01 Hem Pathologist Commnt No 09/17/20 06:01 Sodium 124 mmol/L (137-145) L 09/17/20 06:01 Potassium 5.0 mmol/L (3.6-5.0) 09/17/20 06:01 Chloride 86.4 mmol/L (98-107) L 09/17/20 06:01 Carbon Dioxide 19 mmol/L (22-30) L 09/17/20 06:01 Anion Gap 24 mmol/L 09/17/20 06:01 BUN 26 mg/dL (9-20) H 09/17/20 06:01 Creatinine 1.7 mg/dL (0.8-1.3) H 09/17/20 06:01 Estimated GFR 48 ml/min 09/17/20 06:01 BUN/Creatinine Ratio 15 % 09/17/20 06:01 Glucose 146 mg/dL (75-100) H 09/17/20 06:01 Hemoglobin A1c 6.3 % (4-6) H 09/15/20 14:37 Calcium 9.4 mg/dL (8.4-10.2) 09/17/20 06:01 Total Bilirubin 0.30 mg/dL (0.1-1.2) 09/17/20 06:01 AST 82 units/L (5-40) H 09/17/20 06:01 ALT 30 units/L (7-56) 09/17/20 06:01 Alkaline Phosphatase 67 units/L (35-129) 09/17/20 06:01 Troponin T < 0.010 ng/mL (0.00-0.029) 09/14/20 21:48 NT-Pro-B Natriuret Pep 297.1 pg/mL (0-900) 09/14/20 21:48 Total Protein 7.0 g/dL (6.3-8.2) 09/17/20 06:01 Albumin 4.4 g/dL (3.9-5) 09/17/20 06:01 Albumin/Globulin Ratio 1.7 % 09/17/20 06:01 Buckner/IV: Voiding Method Diaper Active Medications - Current Medications Current Medications: Generic Name Dose Route Start Last Admin Trade Name Freq PRN Reason Stop Dose Admin Acetaminophen 650 mg 09/15/20 15:00 Acetaminophen 325 Mg Tab PO Q4H PRN Pain MILD(1-3)/Fever >100.5/MCNAMARA Albuterol 2.5 mg 09/16/20 13:00 Albuterol 2.5 Mg/3 Ml Nebu IH Q4HRT PRN Shortness Of Breath Albuterol/Ipratropium 1 ampul 09/17/20 20:00 09/17/20 21:53 Ipratropium/Albuterol Sulfate 3 Ml Ampul.Neb IH 1 ampul QIDRT ELIER Administration Amlodipine Besylate 10 mg 09/16/20 13:00 09/18/20 09:40 Amlodipine 10 Mg Tab PO 10 mg DAILY ELIER Administration Arformoterol Tartrate 15 mcg 09/16/20 20:00 09/17/20 21:53 Arformoterol 15 Mcg/2 Ml Nebu IH 15 mcg Q12HRT ELIER Administration Atorvastatin Calcium 80 mg 09/16/20 22:00 09/17/20 21:39 Atorvastatin 40 Mg Tab PO 80 mg QHS ELIER Administration Budesonide 0.5 mg 09/16/20 13:00 09/17/20 21:53 Budesonide 0.5 Mg/2 Ml Nebu IH 0.5 mg Q12HRT ELIER Administration Doxazosin Mesylate 2 mg 09/17/20 10:00 09/18/20 09:39 Doxazosin 1 Mg Tab PO 2 mg QDAY ELIER Administration Ferrous Sulfate 325 mg 09/16/20 13:00 09/18/20 09:36 Ferrous Sulfate 325 Mg Tab PO 325 mg DAILY ELIER Administration Heparin Sodium (Porcine) 5,000 unit 09/15/20 14:15 09/18/20 09:39 Heparin 5,000 Unit/1 Ml Vial SUB-Q 5,000 unit Q12HR ELIER Administration Sodium Chloride 1,000 mls @ 125 mls/hr 09/16/20 18:30 09/18/20 06:15 Nacl 0.9% 1000 Ml IV Infused DIRECT ELIER Infusion Lorazepam 1 mg 09/17/20 17:42 09/18/20 04:09 Lorazepam 2 Mg/Ml Vial IV 1 mg Q6H PRN Administration Anxiety Losartan Potassium 50 mg 09/16/20 13:00 09/18/20 09:39 Losartan 50 Mg Tab PO 50 mg QDAY ELIER Administration Meclizine HCl 25 mg 09/16/20 13:00 09/17/20 09:34 Meclizine 25 Mg Tab PO 25 mg TID PRN Administration Vertigo Methylprednisolone Sodium Succinate 40 mg 09/17/20 18:00 09/18/20 06:16 Methylprednisolone Sod Succinate 125 Mg/2 Ml Inj IV 40 mg Q8HR ELIER Administration Metoclopramide HCl 10 mg 09/15/20 15:00 09/17/20 20:52 Metoclopramide 10 Mg/2 Ml Inj IV 10 mg Q6H PRN Administration Nausea And Vomiting Mirtazapine 45 mg 09/16/20 22:00 09/17/20 21:39 Mirtazapine 15 Mg Solutab PO 45 mg QHS ELIER Administration Ondansetron HCl 4 mg 09/15/20 15:00 09/16/20 23:10 Ondansetron 4 Mg/2 Ml Inj IV 4 mg Q8H PRN Administration Nausea And Vomiting Oxycodone/Acetaminophen 1 tab 09/15/20 15:00 09/16/20 22:16 Oxycodone /Acetaminophen 5-325mg Tab PO 1 tab Q6H PRN Administration Pain, Moderate (4-6) Pantoprazole Sodium 20 mg 09/17/20 07:30 09/18/20 09:38 Pantoprazole 20 Mg Tab PO 20 mg QDAC ELIER Administration Sodium Chloride 10 ml 09/15/20 22:00 09/18/20 09:39 Sodium Chloride 0.9% 10 Ml Flush Syringe IV 10 ml BID ELIER Administration Sodium Chloride 10 ml 09/15/20 14:13 Sodium Chloride 0.9% 10 Ml Flush Syringe IV PRN PRN LINE FLUSH Sodium Chloride 1 gm 09/18/20 22:00 Sodium Chloride 1 Gm Tab PO BID ELIER Sodium Chloride 1 gm 09/18/20 11:30 Sodium Chloride 1 Gm Tab PO 09/18/20 11:31 ONCE ONE
[2020-09-18] MEDS ORDERED: SODIUM CHLORIDE 1 GM TAB PO ONE (12:00)
[2020-09-18] MEDS: BUDESONIDE 0.5 MG/2 ML NEBU IH SCH ×2 (12:32→23:41)
[2020-09-18] MEDS: ARFORMOTEROL 15 MCG/2 ML NEBU IH SCH ×2 (12:32→23:41)
[2020-09-18] MEDS: SODIUM CHLORIDE 0.9% 1000 ML 1,000 ML IV SCH (14:59)
[2020-09-18] MEDS: oxyCODONE /ACETAMINOPHEN 5-325MG TAB PO PRN (15:05)
[2020-09-18] MEDS: SODIUM CHLORIDE 1 GM TAB PO SCH (22:00)
[2020-09-18] MEDS: MIRTAZAPINE 15 MG SOLUTAB PO SCH (22:50)
[2020-09-19] MEDS: LORazepam 2 MG/ML VIAL IV PRN ×4 (01:00→23:28)
[2020-09-19] MEDS: SODIUM CHLORIDE 0.9% 1000 ML 1,000 ML IV SCH (04:34)
[2020-09-19] MEDS: methylPREDNISolone Sod Succinate 125 MG/2 ML INJ IV SCH ×3 (06:40→23:25)
--- NOTE | 2020-09-19 08:28 | Progress Note ---
Assessment and Plan Assessment and plan: --Severe agitation; Current Visit: Yes Status: Acute Probably secondary to underlying encephalopathy, hyponatremia Treat underlying cause, monitor electrolytes Restraint for safety --Severe metabolic encephalopathy; Current Visit: Yes Status: Acute Patient is severely agitated confused. Requiring restraints Probably secondary to underlying hypoxia Hyponatremia Treat the underlying cause Supportive care CT head without contrast; 09/19/2020 atherosclerotic disease in the anterior circulation, no focal mass hemorrhage hydrocephalus and no acute large territorial infarct --Severe hyponatremia /sodium today 136 Current Visit: Yes Status: Acute IV normal saline , closely monitor sodium levels Closely monitor -- Acute respiratory failure with hypoxia Current Visit: Yes Status: Acute Plan to address problem: Patient is nebulizer treatments IV Solu-Medrol and IV Levaquin -- COPD exacerbation Current Visit: Yes Status: Acute Patient on duo nebs and Solu-Medrol and antibiotics -- Asthma Current Visit: Yes Status: Acute Nebulizer treatments as necessary -- Hypertension Current Visit: Yes Status: Chronic Continue losartan and amlodipine --GERD (gastroesophageal reflux disease) Current Visit: Yes Status: Chronic Continue PPIs -- DVT prophylaxis Current Visit: No Status: Acute Heparin and GI prophylaxis for now We will closely monitor the patient and adjust management as needed We will closely monitor the patient and adjust management as needed Plan of care reviewed with the patient and his nurse 09/19/2020; Patient remains confused agitated Requiring restraints Sodium level significantly improved CT head without contrast; acute low atherosclerotic disease in the anterior circulation No acute CVA or mass or hemorrhage If no improvement will consult neurology History Interval history: I have seen and examined the patient at the bedside this morning during morning rounds Patient's chart and medications reviewed Patient remains confused agitated, requiring restraints Sodium level slightly improved Patient is alert and awake confused Vital signs reviewed Hospitalist Physical - Constitutional Vitals: Temp Pulse Resp BP Pulse Ox 97.4 F L 94 H 20 159/80 97 09/19/20 07:25 09/19/20 07:25 09/19/20 07:25 09/19/20 07:25 09/19/20 07:25 General appearance: Present: mild distress, well-nourished, obese, other (Confused and agitated) - EENT Eyes: Present: PERRL, EOM intact - Neck Neck: Present: supple, normal ROM - Respiratory Respiratory effort: normal, labored Respiratory: bilateral: diminished, rhonchi, negative: rales, wheezing - Cardiovascular Rhythm: regular Heart Sounds: Present: S1 & S2 - Extremities Extremities: no ischemia, No edema - Abdominal General gastrointestinal: soft, non-tender, non-distended, normal bowel sounds HEART Score - HEART Score Troponin: Troponin T < 0.010 ng/mL (0.00-0.029) 09/14/20 21:48 Results - Labs CBC & Chem 7: 09/17/20 06:01 09/19/20 09:24 Labs: Laboratory Last Values WBC 9.0 K/mm3 (4.5-11.0) 09/17/20 06:01 RBC 3.87 M/mm3 (3.65-5.03) 09/17/20 06:01 Hgb 11.3 gm/dl (11.8-15.2) L 09/17/20 06:01 Hct 33.7 % (35.5-45.6) L 09/17/20 06:01 MCV 87 fl (84-94) 09/17/20 06:01 MCH 29 pg (28-32) 09/17/20 06:01 MCHC 34 % (32-34) 09/17/20 06:01 RDW 13.6 % (13.2-15.2) 09/17/20 06:01 Plt Count 243 K/mm3 (140-440) 09/17/20 06:01 Lymph % (Auto) 9.3 % (13.4-35.0) L 09/16/20 04:39 [place] % (Auto) 6.8 % (0.0-7.3) 09/16/20 04:39 Eos % (Auto) 0.0 % (0.0-4.3) 09/16/20 04:39 Baso % (Auto) 0.6 % (0.0-1.8) 09/16/20 04:39 Lymph # (Auto) 0.9 K/mm3 (1.2-5.4) L 09/16/20 04:39 [place] # (Auto) 0.6 K/mm3 (0.0-0.8) 09/16/20 04:39 Eos # (Auto) 0.0 K/mm3 (0.0-0.4) 09/16/20 04:39 Baso # (Auto) 0.1 K/mm3 (0.0-0.1) 09/16/20 04:39 Add Manual Diff Complete 09/17/20 06:01 Total Counted 100 09/17/20 06:01 Seg Neutrophils % Psych Np 09/17/20 06:01 Seg Neuts % (Manual) 98.0 % (40.0-70.0) H 09/15/20 14:37 Lymphocytes % (Manual) 1.0 % (13.4-35.0) L 09/15/20 14:37 Eosinophils % (Manual) 1.0 % (0.0-4.3) 09/15/20 14:37 Nucleated RBC % Not Reportable 09/17/20 06:01 Seg Neutrophils # 7.7 K/mm3 (1.8-7.7) 09/16/20 04:39 Seg Neutrophils # Man 9.0 K/mm3 (1.8-7.7) H 09/17/20 06:01 Band Neutrophils # 0.0 K/mm3 09/17/20 06:01 Lymphocytes # (Manual) 0.0 K/mm3 (1.2-5.4) L 09/17/20 06:01 Abs React Lymphs (Man) 0.0 K/mm3 09/17/20 06:01 Monocytes # (Manual) 0.0 K/mm3 (0.0-0.8) 09/17/20 06:01 Eosinophils # (Manual) 0.0 K/mm3 (0.0-0.4) 09/17/20 06:01 Basophils # (Manual) 0.0 K/mm3 (0.0-0.1) 09/17/20 06:01 Metamyelocytes # 0.0 K/mm3 09/17/20 06:01 Myelocytes # 0.0 K/mm3 09/17/20 06:01 Promyelocytes # 0.0 K/mm3 09/17/20 06:01 Blast Cells # 0.0 K/mm3 09/17/20 06:01 WBC Morphology Not Reportable 09/17/20 06:01 Hypersegmented Neuts Not Reportable 09/17/20 06:01 Hyposegmented Neuts Not Reportable 09/17/20 06:01 Hypogranular Neuts Not Reportable 09/17/20 06:01 Smudge Cells Not Reportable 09/17/20 06:01 Toxic Granulation Not Reportable 09/17/20 06:01 Toxic Vacuolation Not Reportable 09/17/20 06:01 Dohle Bodies Not Reportable 09/17/20 06:01 Pelger-Huet Anomaly Not Reportable 09/17/20 06:01 [place] Rods Not Reportable 09/17/20 06:01 Platelet Estimate Consistent w auto 09/17/20 06:01 Clumped Platelets Not Reportable 09/17/20 06:01 Plt Clumps, EDTA Not Reportable 09/17/20 06:01 Large Platelets Not Reportable 09/17/20 06:01 Giant Platelets Not Reportable 09/17/20 06:01 Platelet Satelliting Not Reportable 09/17/20 06:01 Plt Morphology Comment Not Reportable 09/17/20 06:01 RBC Morphology Normal 09/17/20 06:01 Dimorphic RBCs Not Reportable 09/17/20 06:01 Polychromasia Not Reportable 09/17/20 06:01 Hypochromasia Not Reportable 09/17/20 06:01 Poikilocytosis Not Reportable 09/17/20 06:01 Anisocytosis Not Reportable 09/17/20 06:01 Microcytosis Not Reportable 09/17/20 06:01 Macrocytosis Not Reportable 09/17/20 06:01 Spherocytes Not Reportable 09/17/20 06:01 Pappenheimer Bodies Not Reportable 09/17/20 06:01 Sickle Cells Not Reportable 09/17/20 06:01 Target Cells Not Reportable 09/17/20 06:01 Tear Drop Cells Not Reportable 09/17/20 06:01 Ovalocytes Not Reportable 09/17/20 06:01 Helmet Cells Not Reportable 09/17/20 06:01 [place] Bodies Not Reportable 09/17/20 06:01 [place] Rings Not Reportable 09/17/20 06:01 [place] Cells Not Reportable 09/17/20 06:01 Bite Cells Not Reportable 09/17/20 06:01 Crenated Cell Not Reportable 09/17/20 06:01 Elliptocytes Not Reportable 09/17/20 06:01 Acanthocytes (Spur) Not Reportable 09/17/20 06:01 Rouleaux Not Reportable 09/17/20 06:01 Hemoglobin C Crystals Not Reportable 09/17/20 06:01 Schistocytes Not Reportable 09/17/20 06:01 Malaria parasites Not Reportable 09/17/20 06:01 Jordi Bodies Not Reportable 09/17/20 06:01 Hem Pathologist Commnt No 09/17/20 06:01 Sodium 124 mmol/L (137-145) L 09/17/20 06:01 Potassium 5.0 mmol/L (3.6-5.0) 09/17/20 06:01 Chloride 86.4 mmol/L (98-107) L 09/17/20 06:01 Carbon Dioxide 19 mmol/L (22-30) L 09/17/20 06:01 Anion Gap 24 mmol/L 09/17/20 06:01 BUN 26 mg/dL (9-20) H 09/17/20 06:01 Creatinine 1.7 mg/dL (0.8-1.3) H 09/17/20 06:01 Estimated GFR 48 ml/min 09/17/20 06:01 BUN/Creatinine Ratio 15 % 09/17/20 06:01 Glucose 146 mg/dL (75-100) H 09/17/20 06:01 Hemoglobin A1c 6.3 % (4-6) H 09/15/20 14:37 Calcium 9.4 mg/dL (8.4-10.2) 09/17/20 06:01 Total Bilirubin 0.30 mg/dL (0.1-1.2) 09/17/20 06:01 AST 82 units/L (5-40) H 09/17/20 06:01 ALT 30 units/L (7-56) 09/17/20 06:01 Alkaline Phosphatase 67 units/L (35-129) 09/17/20 06:01 Troponin T < 0.010 ng/mL (0.00-0.029) 09/14/20 21:48 NT-Pro-B Natriuret Pep 297.1 pg/mL (0-900) 09/14/20 21:48 Total Protein 7.0 g/dL (6.3-8.2) 09/17/20 06:01 Albumin 4.4 g/dL (3.9-5) 09/17/20 06:01 Albumin/Globulin Ratio 1.7 % 09/17/20 06:01 Buckner/IV: Voiding Method Urinal Active Medications - Current Medications Current Medications: Generic Name Dose Route Start Last Admin Trade Name Freq PRN Reason Stop Dose Admin Acetaminophen 650 mg 09/15/20 15:00 Acetaminophen 325 Mg Tab PO Q4H PRN Pain MILD(1-3)/Fever >100.5/MCNAMARA Albuterol 2.5 mg 09/16/20 13:00 Albuterol 2.5 Mg/3 Ml Nebu IH Q4HRT PRN Shortness Of Breath Albuterol/Ipratropium 1 ampul 09/17/20 20:00 09/18/20 23:57 Ipratropium/Albuterol Sulfate 3 Ml Ampul.Neb IH 1 ampul QIDRT ELIER Administration Amlodipine Besylate 10 mg 09/16/20 13:00 09/18/20 09:40 Amlodipine 10 Mg Tab PO 10 mg DAILY ELIER Administration Arformoterol Tartrate 15 mcg 09/16/20 20:00 09/18/20 23:41 Arformoterol 15 Mcg/2 Ml Nebu IH 15 mcg Q12HRT ELIER Administration Atorvastatin Calcium 80 mg 09/16/20 22:00 09/18/20 22:50 Atorvastatin 40 Mg Tab PO 80 mg QHS ELIER Administration Budesonide 0.5 mg 09/16/20 13:00 09/18/20 23:41 Budesonide 0.5 Mg/2 Ml Nebu IH 0.5 mg Q12HRT ELIER Administration Doxazosin Mesylate 2 mg 09/17/20 10:00 09/18/20 09:39 Doxazosin 1 Mg Tab PO 2 mg QDAY ELIER Administration Ferrous Sulfate 325 mg 09/16/20 13:00 09/18/20 09:36 Ferrous Sulfate 325 Mg Tab PO 325 mg DAILY ELIER Administration Heparin Sodium (Porcine) 5,000 unit 09/15/20 14:15 09/18/20 22:49 Heparin 5,000 Unit/1 Ml Vial SUB-Q 5,000 unit Q12HR ELIER Administration Sodium Chloride 1,000 mls @ 125 mls/hr 09/16/20 18:30 09/19/20 04:34 Nacl 0.9% 1000 Ml IV 125 mls/hr DIRECT ELIER Administration Lorazepam 1 mg 09/17/20 17:42 09/19/20 06:40 Lorazepam 2 Mg/Ml Vial IV 1 mg Q6H PRN Administration Anxiety Losartan Potassium 50 mg 09/16/20 13:00 09/18/20 09:39 Losartan 50 Mg Tab PO 50 mg QDAY ELIER Administration Meclizine HCl 25 mg 09/16/20 13:00 09/17/20 09:34 Meclizine 25 Mg Tab PO 25 mg TID PRN Administration Vertigo Methylprednisolone Sodium Succinate 40 mg 09/17/20 18:00 09/19/20 06:40 Methylprednisolone Sod Succinate 125 Mg/2 Ml Inj IV 40 mg Q8HR ELIER Administration Metoclopramide HCl 10 mg 09/15/20 15:00 09/17/20 20:52 Metoclopramide 10 Mg/2 Ml Inj IV 10 mg Q6H PRN Administration Nausea And Vomiting Mirtazapine 45 mg 09/16/20 22:00 09/18/20 22:50 Mirtazapine 15 Mg Solutab PO 45 mg QHS ELIER Administration Ondansetron HCl 4 mg 09/15/20 15:00 09/16/20 23:10 Ondansetron 4 Mg/2 Ml Inj IV 4 mg Q8H PRN Administration Nausea And Vomiting Oxycodone/Acetaminophen 1 tab 09/15/20 15:00 09/18/20 15:05 Oxycodone /Acetaminophen 5-325mg Tab PO 1 tab Q6H PRN Administration Pain, Moderate (4-6) Pantoprazole Sodium 20 mg 09/17/20 07:30 09/18/20 09:38 Pantoprazole 20 Mg Tab PO 20 mg QDAC ELIER Administration Sodium Chloride 10 ml 09/15/20 22:00 09/18/20 22:00 Sodium Chloride 0.9% 10 Ml Flush Syringe IV 10 ml BID ELIER Administration Sodium Chloride 10 ml 09/15/20 14:13 Sodium Chloride 0.9% 10 Ml Flush Syringe IV PRN PRN LINE FLUSH Sodium Chloride 1 gm 09/18/20 22:00 09/18/20 22:00 Sodium Chloride 1 Gm Tab PO 1 gm BID ELIER Administration
[2020-09-19] MEDS: SODIUM CHLORIDE 1 GM TAB PO SCH ×2 (09:24→23:27)
[2020-09-19] MEDS: FERROUS SULFATE 325 MG TAB PO SCH (09:25)
[2020-09-19] MEDS: PANTOPRAZOLE 20 MG TAB PO SCH (09:25)
[2020-09-19] MEDS: oxyCODONE /ACETAMINOPHEN 5-325MG TAB PO PRN (09:25)
[2020-09-19] MEDS: LOSARTAN 50 MG TAB PO SCH (09:25)
[2020-09-19] MEDS: DOXAZOSIN 1 MG TAB PO SCH (09:25)
[2020-09-19] MEDS: amLODIPine 10 MG TAB PO SCH (09:25)
[2020-09-19] MEDS: HEPARIN 5,000 UNIT/1 ML VIAL SUB-Q SCH ×2 (09:26→23:26)
[2020-09-19] MEDS: IPRATROPIUM/ALBUTEROL SULFATE 3 ML AMPUL.NEB IH SCH ×4 (09:46→21:21)
[2020-09-19] MEDS: BUDESONIDE 0.5 MG/2 ML NEBU IH SCH ×2 (09:47→21:21)
[2020-09-19] MEDS: ARFORMOTEROL 15 MCG/2 ML NEBU IH SCH ×2 (09:47→21:21)
[2020-09-19 09:59] LABS: Calcium 9.7 mg/dL (8.4-10.2)
--- NOTE | 2020-09-19 10:36 | Cat Scan Report ---
CT head/brain wo con INDICATION / CLINICAL INFORMATION: 75 years Male; Altered mental status/encephalopathy. TECHNIQUE: Routine CT head without contrast. All CT scans at this location are performed using CT dos e reduction for ALARA by means of automated exposure control. COMPARISON: 05/04/2020 FINDINGS: BRAIN / INTRACRANIAL CONTENTS: No acute hemorrhage, mass effect, midline shift, hydrocephalus, or acu te, large territorial infarct. Mild, diffuse cerebral atrophy. Atrophy might be slightly greater in the parietal lobe regions. There are minimal areas of decreased attenuation in the white matter of the cerebral hemispheres. The se are nonspecific findings and may be related to microangiopathy (hypertension, diabetes, atheroscle rosis), given the patient's age. It might be difficult to evaluate for small areas of ischemia withou t diffusion imaging by MRI. There may be small developmental venous anomalies in the cerebellar hemispheres, which should be of n o clinical significance. CRANIOCERVICAL JUNCTION: No significant abnormality. ORBITS: No significant abnormality of visualized orbits. SINUSES / MASTOIDS: Mucous retention cyst/polyp seen in the maxillary antra, as well as the ethmoids. Similar findings seen in the sphenoid sinuses. ADDITIONAL FINDINGS: Atherosclerotic disease is seen in the anterior circulation. IMPRESSION: 1. No focal mass, hemorrhage, hydrocephalus, or acute, large territorial infarct. Signer Name: Ken Mcneill MD, III Signed: 09/19/2020 10:32 AM Workstation Name: [email or web address] Online [facility]ingS[email or web address]
[2020-09-19] MEDS: MIRTAZAPINE 15 MG SOLUTAB PO SCH (23:27)
[2020-09-20] MEDS: methylPREDNISolone Sod Succinate 125 MG/2 ML INJ IV SCH ×3 (06:40→21:14)
[2020-09-20] MEDS: PANTOPRAZOLE 20 MG TAB PO SCH (08:15)
[2020-09-20] MEDS: HEPARIN 5,000 UNIT/1 ML VIAL SUB-Q SCH ×2 (09:08→21:15)
[2020-09-20] MEDS: FERROUS SULFATE 325 MG TAB PO SCH (09:08)
[2020-09-20] MEDS: LOSARTAN 50 MG TAB PO SCH (09:09)
[2020-09-20] MEDS: SODIUM CHLORIDE 1 GM TAB PO SCH ×2 (09:09→21:14)
[2020-09-20] MEDS: amLODIPine 10 MG TAB PO SCH (09:09)
[2020-09-20] MEDS: DOXAZOSIN 1 MG TAB PO SCH (09:56)
[2020-09-20] MEDS: IPRATROPIUM/ALBUTEROL SULFATE 3 ML AMPUL.NEB IH SCH ×5 (10:03→22:36)
[2020-09-20] MEDS: ARFORMOTEROL 15 MCG/2 ML NEBU IH SCH ×2 (10:03→22:29)
[2020-09-20] MEDS: BUDESONIDE 0.5 MG/2 ML NEBU IH SCH ×2 (10:03→22:29)
--- NOTE | 2020-09-20 14:23 | Progress Note ---
Assessment and Plan Assessment and plan: --Severe agitation; Current Visit: Yes Status: Acute Significantly improved, today patient is alert awake oriented Calm and composed, responding appropriately DC the restraints --Severe toxic metabolic encephalopathy;[ present on admission] Current Visit: Yes Status: Acute Patient is severely agitated confused. Requiring restraints However patient symptoms significantly improved today More alert and awake DC letter restraints Tolerating oral diet CT head without contrast; 09/19/2020 atherosclerotic disease in the anterior circulation, no focal mass hemorrhage hydrocephalus and no acute large territorial infarct --Severe hyponatremia /sodium today 136-139 Current Visit: Yes Status: Acute DC IV fluids, closely monitor electrolytes -- Acute respiratory failure with hypoxia Current Visit: Yes Status: Acute Patient is nebulizer treatments IV Solu-Medrol and IV Levaquin -- COPD exacerbation Current Visit: Yes Status: Acute Patient on duo nebs and Solu-Medrol and antibiotics -- Asthma Current Visit: Yes Status: Acute Nebulizer treatments as necessary -- Hypertension Current Visit: Yes Status: Chronic Continue losartan and amlodipine --GERD (gastroesophageal reflux disease) Current Visit: Yes Status: Chronic Continue PPIs -- DVT prophylaxis Current Visit: No Status: Acute Heparin and GI prophylaxis for now We will closely monitor the patient and adjust management as needed We will closely monitor the patient and adjust management as needed Plan of care reviewed with the patient and his nurse 09/19/2020; Patient remains confused agitated Requiring restraints Sodium level significantly improved CT head without contrast; acute low atherosclerotic disease in the anterior circulation No acute CVA or mass or hemorrhage If no improvement will consult neurology 09/20/2020; Patient is alert awake oriented, no confusion or agitation Discontinued restraints, electrolytes improved Physical therapy occupational therapy DC planning when medically stable Probably in 1 or 2 days History Interval history: I have seen and examined the patient at the bedside Patient's chart and medications reviewed Patient is more alert and awake today No agitation or aggression restraints Discontinued No new complaints Vital signs noted Hospitalist Physical - Constitutional Vitals: Temp Pulse Resp BP Pulse Ox 97.5 F L 96 H 17 145/85 96 09/20/20 08:58 09/20/20 10:00 09/20/20 10:53 09/20/20 09:56 09/20/20 10:53 General appearance: Present: no acute distress, well-nourished, obese, other (Alert and awake oriented x3) - EENT Eyes: Present: PERRL, EOM intact - Neck Neck: Present: supple, normal ROM - Respiratory Respiratory effort: normal Respiratory: bilateral: diminished, negative: rales, rhonchi, wheezing - Cardiovascular Rhythm: regular Heart Sounds: Present: S1 & S2 - Extremities Extremities: no ischemia, No edema - Abdominal General gastrointestinal: soft, non-tender, non-distended, normal bowel sounds - Integumentary Integumentary: Present: clear, warm - Psychiatric Psychiatric: appropriate mood/affect, cooperative - Neurologic Neurologic: CNII-XII intact, moves all extremities HEART Score - HEART Score Troponin: WBC 9.0 K/mm3 (4.5-11.0) 09/17/20 06:01 RBC 3.87 M/mm3 (3.65-5.03) 09/17/20 06:01 Hgb 11.3 gm/dl (11.8-15.2) L 09/17/20 06:01 Hct 33.7 % (35.5-45.6) L 09/17/20 06:01 MCV 87 fl (84-94) 09/17/20 06:01 MCH 29 pg (28-32) 09/17/20 06:01 MCHC 34 % (32-34) 09/17/20 06:01 RDW 13.6 % (13.2-15.2) 09/17/20 06:01 Plt Count 243 K/mm3 (140-440) 09/17/20 06:01 Lymph % (Auto) 9.3 % (13.4-35.0) L 09/16/20 04:39 Hinds % (Auto) 6.8 % (0.0-7.3) 09/16/20 04:39 Eos % (Auto) 0.0 % (0.0-4.3) 09/16/20 04:39 Baso % (Auto) 0.6 % (0.0-1.8) 09/16/20 04:39 Lymph # (Auto) 0.9 K/mm3 (1.2-5.4) L 09/16/20 04:39 Hinds # (Auto) 0.6 K/mm3 (0.0-0.8) 09/16/20 04:39 Eos # (Auto) 0.0 K/mm3 (0.0-0.4) 09/16/20 04:39 Baso # (Auto) 0.1 K/mm3 (0.0-0.1) 09/16/20 04:39 Add Manual Diff Complete 09/17/20 06:01 Total Counted 100 09/17/20 06:01 Seg Neutrophils % News Reporter 09/17/20 06:01 Seg Neuts % (Manual) 98.0 % (40.0-70.0) H 09/15/20 14:37 Lymphocytes % (Manual) 1.0 % (13.4-35.0) L 09/15/20 14:37 Eosinophils % (Manual) 1.0 % (0.0-4.3) 09/15/20 14:37 Nucleated RBC % Not Reportable 09/17/20 06:01 Seg Neutrophils # 7.7 K/mm3 (1.8-7.7) 09/16/20 04:39 Seg Neutrophils # Man 9.0 K/mm3 (1.8-7.7) H 09/17/20 06:01 Band Neutrophils # 0.0 K/mm3 09/17/20 06:01 Lymphocytes # (Manual) 0.0 K/mm3 (1.2-5.4) L 09/17/20 06:01 Abs React Lymphs (Man) 0.0 K/mm3 09/17/20 06:01 Monocytes # (Manual) 0.0 K/mm3 (0.0-0.8) 09/17/20 06:01 Eosinophils # (Manual) 0.0 K/mm3 (0.0-0.4) 09/17/20 06:01 Basophils # (Manual) 0.0 K/mm3 (0.0-0.1) 09/17/20 06:01 Metamyelocytes # 0.0 K/mm3 09/17/20 06:01 Myelocytes # 0.0 K/mm3 09/17/20 06:01 Promyelocytes # 0.0 K/mm3 09/17/20 06:01 Blast Cells # 0.0 K/mm3 09/17/20 06:01 WBC Morphology Not Reportable 09/17/20 06:01 Hypersegmented Neuts Not Reportable 09/17/20 06:01 Hyposegmented Neuts Not Reportable 09/17/20 06:01 Hypogranular Neuts Not Reportable 09/17/20 06:01 Smudge Cells Not Reportable 09/17/20 06:01 Toxic Granulation Not Reportable 09/17/20 06:01 Toxic Vacuolation Not Reportable 09/17/20 06:01 Dohle Bodies Not Reportable 09/17/20 06:01 Pelger-Huet Anomaly Not Reportable 09/17/20 06:01 Clifford Rods Not Reportable 09/17/20 06:01 Platelet Estimate Consistent w auto 09/17/20 06:01 Clumped Platelets Not Reportable 09/17/20 06:01 Plt Clumps, EDTA Not Reportable 09/17/20 06:01 Large Platelets Not Reportable 09/17/20 06:01 Giant Platelets Not Reportable 09/17/20 06:01 Platelet Satelliting Not Reportable 09/17/20 06:01 Plt Morphology Comment Not Reportable 09/17/20 06:01 RBC Morphology Normal 09/17/20 06:01 Dimorphic RBCs Not Reportable 09/17/20 06:01 Polychromasia Not Reportable 09/17/20 06:01 Hypochromasia Not Reportable 09/17/20 06:01 Poikilocytosis Not Reportable 09/17/20 06:01 Anisocytosis Not Reportable 09/17/20 06:01 Microcytosis Not Reportable 09/17/20 06:01 Macrocytosis Not Reportable 09/17/20 06:01 Spherocytes Not Reportable 09/17/20 06:01 Pappenheimer Bodies Not Reportable 09/17/20 06:01 Sickle Cells Not Reportable 09/17/20 06:01 Target Cells Not Reportable 09/17/20 06:01 Tear Drop Cells Not Reportable 09/17/20 06:01 Ovalocytes Not Reportable 09/17/20 06:01 Helmet Cells Not Reportable 09/17/20 06:01 Miranda-Ever[place] Bodies Not Reportable 09/17/20 06:01 [place] Rings Not Reportable 09/17/20 06:01 [place] Cells Not Reportable 09/17/20 06:01 Bite Cells Not Reportable 09/17/20 06:01 Crenated Cell Not Reportable 09/17/20 06:01 Elliptocytes Not Reportable 09/17/20 06:01 Acanthocytes (Spur) Not Reportable 09/17/20 06:01 Rouleaux Not Reportable 09/17/20 06:01 Hemoglobin C Crystals Not Reportable 09/17/20 06:01 Schistocytes Not Reportable 09/17/20 06:01 Malaria parasites Not Reportable 09/17/20 06:01 Jordi Bodies Not Reportable 09/17/20 06:01 Hem Pathologist Commnt No 09/17/20 06:01 Sodium 136 mmol/L (137-145) L D 09/19/20 09:24 Potassium 4.9 mmol/L (3.6-5.0) 09/19/20 09:24 Chloride 100.1 mmol/L (98-107) 09/19/20 09:24 Carbon Dioxide 24 mmol/L (22-30) 09/19/20 09:24 Anion Gap 17 mmol/L 09/19/20 09:24 BUN 22 mg/dL (9-20) H 09/19/20 09:24 Creatinine 1.5 mg/dL (0.8-1.3) H 09/19/20 09:24 Estimated GFR 55 ml/min 09/19/20 09:24 BUN/Creatinine Ratio 15 % 09/19/20 09:24 Glucose 179 mg/dL (75-100) H 09/19/20 09:24 Hemoglobin A1c 6.3 % (4-6) H 09/15/20 14:37 Calcium 9.7 mg/dL (8.4-10.2) 09/19/20 09:24 Total Bilirubin 0.30 mg/dL (0.1-1.2) 09/17/20 06:01 AST 82 units/L (5-40) H 09/17/20 06:01 ALT 30 units/L (7-56) 09/17/20 06:01 Alkaline Phosphatase 67 units/L (35-129) 09/17/20 06:01 Troponin T < 0.010 ng/mL (0.00-0.029) 09/14/20 21:48 NT-Pro-B Natriuret Pep 297.1 pg/mL (0-900) 09/14/20 21:48 Total Protein 7.0 g/dL (6.3-8.2) 09/17/20 06:01 Albumin 4.4 g/dL (3.9-5) 09/17/20 06:01 Albumin/Globulin Ratio 1.7 % 09/17/20 06:01 Results - Labs CBC & Chem 7: 09/17/20 06:01 09/20/20 15:28 Labs: Laboratory Last Values WBC 9.0 K/mm3 (4.5-11.0) 09/17/20 06:01 RBC 3.87 M/mm3 (3.65-5.03) 09/17/20 06:01 Hgb 11.3 gm/dl (11.8-15.2) L 09/17/20 06:01 Hct 33.7 % (35.5-45.6) L 09/17/20 06:01 MCV 87 fl (84-94) 09/17/20 06:01 MCH 29 pg (28-32) 09/17/20 06:01 MCHC 34 % (32-34) 09/17/20 06:01 RDW 13.6 % (13.2-15.2) 09/17/20 06:01 Plt Count 243 K/mm3 (140-440) 09/17/20 06:01 Lymph % (Auto) 9.3 % (13.4-35.0) L 09/16/20 04:39 Hinds % (Auto) 6.8 % (0.0-7.3) 09/16/20 04:39 Eos % (Auto) 0.0 % (0.0-4.3) 09/16/20 04:39 Baso % (Auto) 0.6 % (0.0-1.8) 09/16/20 04:39 Lymph # (Auto) 0.9 K/mm3 (1.2-5.4) L 09/16/20 04:39 Hinds # (Auto) 0.6 K/mm3 (0.0-0.8) 09/16/20 04:39 Eos # (Auto) 0.0 K/mm3 (0.0-0.4) 09/16/20 04:39 Baso # (Auto) 0.1 K/mm3 (0.0-0.1) 09/16/20 04:39 Add Manual Diff Complete 09/17/20 06:01 Total Counted 100 09/17/20 06:01 Seg Neutrophils % News Reporter 09/17/20 06:01 Seg Neuts % (Manual) 98.0 % (40.0-70.0) H 09/15/20 14:37 Lymphocytes % (Manual) 1.0 % (13.4-35.0) L 09/15/20 14:37 Eosinophils % (Manual) 1.0 % (0.0-4.3) 09/15/20 14:37 Nucleated RBC % Not Reportable 09/17/20 06:01 Seg Neutrophils # 7.7 K/mm3 (1.8-7.7) 09/16/20 04:39 Seg Neutrophils # Man 9.0 K/mm3 (1.8-7.7) H 09/17/20 06:01 Band Neutrophils # 0.0 K/mm3 09/17/20 06:01 Lymphocytes # (Manual) 0.0 K/mm3 (1.2-5.4) L 09/17/20 06:01 Abs React Lymphs (Man) 0.0 K/mm3 09/17/20 06:01 Monocytes # (Manual) 0.0 K/mm3 (0.0-0.8) 09/17/20 06:01 Eosinophils # (Manual) 0.0 K/mm3 (0.0-0.4) 09/17/20 06:01 Basophils # (Manual) 0.0 K/mm3 (0.0-0.1) 09/17/20 06:01 Metamyelocytes # 0.0 K/mm3 09/17/20 06:01 Myelocytes # 0.0 K/mm3 09/17/20 06:01 Promyelocytes # 0.0 K/mm3 09/17/20 06:01 Blast Cells # 0.0 K/mm3 09/17/20 06:01 WBC Morphology Not Reportable 09/17/20 06:01 Hypersegmented Neuts Not Reportable 09/17/20 06:01 Hyposegmented Neuts Not Reportable 09/17/20 06:01 Hypogranular Neuts Not Reportable 09/17/20 06:01 Smudge Cells Not Reportable 09/17/20 06:01 Toxic Granulation Not Reportable 09/17/20 06:01 Toxic Vacuolation Not Reportable 09/17/20 06:01 Dohle Bodies Not Reportable 09/17/20 06:01 Pelger-Huet Anomaly Not Reportable 09/17/20 06:01 Clifford Rods Not Reportable 09/17/20 06:01 Platelet Estimate Consistent w auto 09/17/20 06:01 Clumped Platelets Not Reportable 09/17/20 06:01 Plt Clumps, EDTA Not Reportable 09/17/20 06:01 Large Platelets Not Reportable 09/17/20 06:01 Giant Platelets Not Reportable 09/17/20 06:01 Platelet Satelliting Not Reportable 09/17/20 06:01 Plt Morphology Comment Not Reportable 09/17/20 06:01 RBC Morphology Normal 09/17/20 06:01 Dimorphic RBCs Not Reportable 09/17/20 06:01 Polychromasia Not Reportable 09/17/20 06:01 Hypochromasia Not Reportable 09/17/20 06:01 Poikilocytosis Not Reportable 09/17/20 06:01 Anisocytosis Not Reportable 09/17/20 06:01 Microcytosis Not Reportable 09/17/20 06:01 Macrocytosis Not Reportable 09/17/20 06:01 Spherocytes Not Reportable 09/17/20 06:01 Pappenheimer Bodies Not Reportable 09/17/20 06:01 Sickle Cells Not Reportable 09/17/20 06:01 Target Cells Not Reportable 09/17/20 06:01 Tear Drop Cells Not Reportable 09/17/20 06:01 Ovalocytes Not Reportable 09/17/20 06:01 Helmet Cells Not Reportable 09/17/20 06:01 Miranda-Everton Bodies Not Reportable 09/17/20 06:01 [place] Rings Not Reportable 09/17/20 06:01 [place] Cells Not Reportable 09/17/20 06:01 Bite Cells Not Reportable 09/17/20 06:01 Crenated Cell Not Reportable 09/17/20 06:01 Elliptocytes Not Reportable 09/17/20 06:01 Acanthocytes (Spur) Not Reportable 09/17/20 06:01 Rouleaux Not Reportable 09/17/20 06:01 Hemoglobin C Crystals Not Reportable 09/17/20 06:01 Schistocytes Not Reportable 09/17/20 06:01 Malaria parasites Not Reportable 09/17/20 06:01 Jordi Bodies Not Reportable 09/17/20 06:01 Hem Pathologist Commnt No 09/17/20 06:01 Sodium 136 mmol/L (137-145) L D 09/19/20 09:24 Potassium 4.9 mmol/L (3.6-5.0) 09/19/20 09:24 Chloride 100.1 mmol/L (98-107) 09/19/20 09:24 Carbon Dioxide 24 mmol/L (22-30) 09/19/20 09:24 Anion Gap 17 mmol/L 09/19/20 09:24 BUN 22 mg/dL (9-20) H 09/19/20 09:24 Creatinine 1.5 mg/dL (0.8-1.3) H 09/19/20 09:24 Estimated GFR 55 ml/min 09/19/20 09:24 BUN/Creatinine Ratio 15 % 09/19/20 09:24 Glucose 179 mg/dL (75-100) H 09/19/20 09:24 Hemoglobin A1c 6.3 % (4-6) H 09/15/20 14:37 Calcium 9.7 mg/dL (8.4-10.2) 09/19/20 09:24 Total Bilirubin 0.30 mg/dL (0.1-1.2) 09/17/20 06:01 AST 82 units/L (5-40) H 09/17/20 06:01 ALT 30 units/L (7-56) 09/17/20 06:01 Alkaline Phosphatase 67 units/L (35-129) 09/17/20 06:01 Troponin T < 0.010 ng/mL (0.00-0.029) 09/14/20 21:48 NT-Pro-B Natriuret Pep 297.1 pg/mL (0-900) 09/14/20 21:48 Total Protein 7.0 g/dL (6.3-8.2) 09/17/20 06:01 Albumin 4.4 g/dL (3.9-5) 09/17/20 06:01 Albumin/Globulin Ratio 1.7 % 09/17/20 06:01 Buckner/IV: Voiding Method Urinal Active Medications - Current Medications Current Medications: Generic Name Dose Route Start Last Admin Trade Name Freq PRN Reason Stop Dose Admin Acetaminophen 650 mg 09/15/20 15:00 Acetaminophen 325 Mg Tab PO Q4H PRN Pain MILD(1-3)/Fever >100.5/MCNAMARA Albuterol 2.5 mg 09/16/20 13:00 09/20/20 02:24 Albuterol 2.5 Mg/3 Ml Nebu IH 2.5 mg Q4HRT PRN Administration Shortness Of Breath Albuterol/Ipratropium 1 ampul 09/17/20 20:00 09/20/20 13:48 Ipratropium/Albuterol Sulfate 3 Ml Ampul.Neb IH Not Given QIDRT ELIER Amlodipine Besylate 10 mg 09/16/20 13:00 09/20/20 09:09 Amlodipine 10 Mg Tab PO 10 mg DAILY ELIER Administration Arformoterol Tartrate 15 mcg 09/16/20 20:00 09/20/20 10:03 Arformoterol 15 Mcg/2 Ml Nebu IH 15 mcg Q12HRT ELIER Administration Atorvastatin Calcium 80 mg 09/16/20 22:00 09/19/20 23:26 Atorvastatin 40 Mg Tab PO 80 mg QHS ELIER Administration Budesonide 0.5 mg 09/16/20 13:00 09/20/20 10:03 Budesonide 0.5 Mg/2 Ml Nebu IH 0.5 mg Q12HRT ELIER Administration Doxazosin Mesylate 2 mg 09/17/20 10:00 09/20/20 09:56 Doxazosin 1 Mg Tab PO 2 mg QDAY ELIER Administration Ferrous Sulfate 325 mg 09/16/20 13:00 09/20/20 09:08 Ferrous Sulfate 325 Mg Tab PO 325 mg DAILY ELIER Administration Heparin Sodium (Porcine) 5,000 unit 09/15/20 14:15 09/20/20 09:08 Heparin 5,000 Unit/1 Ml Vial SUB-Q 5,000 unit Q12HR ELIER Administration Sodium Chloride 1,000 mls @ 125 mls/hr 09/16/20 18:30 09/19/20 04:34 Nacl 0.9% 1000 Ml IV 125 mls/hr DIRECT ELIER Administration Lorazepam 1 mg 09/17/20 17:42 09/19/20 23:28 Lorazepam 2 Mg/Ml Vial IV 1 mg Q6H PRN Administration Anxiety Losartan Potassium 50 mg 09/16/20 13:00 09/20/20 09:09 Losartan 50 Mg Tab PO 50 mg QDAY ELIER Administration Meclizine HCl 25 mg 09/16/20 13:00 09/17/20 09:34 Meclizine 25 Mg Tab PO 25 mg TID PRN Administration Vertigo Methylprednisolone Sodium Succinate 40 mg 09/17/20 18:00 09/20/20 13:10 Methylprednisolone Sod Succinate 125 Mg/2 Ml Inj IV 40 mg Q8HR ELIER Administration Metoclopramide HCl 10 mg 09/15/20 15:00 09/17/20 20:52 Metoclopramide 10 Mg/2 Ml Inj IV 10 mg Q6H PRN Administration Nausea And Vomiting Mirtazapine 45 mg 09/16/20 22:00 09/19/20 23:27 Mirtazapine 15 Mg Solutab PO 45 mg QHS ELIER Administration Ondansetron HCl 4 mg 09/15/20 15:00 09/16/20 23:10 Ondansetron 4 Mg/2 Ml Inj IV 4 mg Q8H PRN Administration Nausea And Vomiting Oxycodone/Acetaminophen 1 tab 09/15/20 15:00 09/19/20 09:25 Oxycodone /Acetaminophen 5-325mg Tab PO 1 tab Q6H PRN Administration Pain, Moderate (4-6) Pantoprazole Sodium 20 mg 09/17/20 07:30 09/20/20 08:15 Pantoprazole 20 Mg Tab PO 20 mg QDAC ELIER Administration Sodium Chloride 10 ml 09/15/20 22:00 09/20/20 09:09 Sodium Chloride 0.9% 10 Ml Flush Syringe IV 10 ml BID ELIER Administration Sodium Chloride 10 ml 09/15/20 14:13 Sodium Chloride 0.9% 10 Ml Flush Syringe IV PRN PRN LINE FLUSH Sodium Chloride 1 gm 09/18/20 22:00 09/20/20 09:09 Sodium Chloride 1 Gm Tab PO 1 gm BID ELIER Administration
[2020-09-20 16:08] LABS: BUN/Creatinine Ratio 18; Blood Urea Nitrogen 22 mg/dL (9-20); Calcium 9.5 mg/dL (8.4-10.2); Hemolysis Index 4
[2020-09-20] MEDS ORDERED: FUROSEMIDE 40 MG/4 ML INJ IV ONE (20:00)
[2020-09-20] MEDS: MIRTAZAPINE 15 MG SOLUTAB PO SCH (21:13)
[2020-09-21] MEDS: methylPREDNISolone Sod Succinate 125 MG/2 ML INJ IV SCH ×3 (06:08→21:55)
[2020-09-21] MEDS: ARFORMOTEROL 15 MCG/2 ML NEBU IH SCH ×2 (08:53→21:20)
[2020-09-21] MEDS: BUDESONIDE 0.5 MG/2 ML NEBU IH SCH ×2 (08:53→21:20)
[2020-09-21] MEDS: IPRATROPIUM/ALBUTEROL SULFATE 3 ML AMPUL.NEB IH SCH ×3 (08:53→21:20)
[2020-09-21] MEDS: HEPARIN 5,000 UNIT/1 ML VIAL SUB-Q SCH ×2 (09:22→21:53)
[2020-09-21] MEDS: LOSARTAN 50 MG TAB PO SCH (09:26)
[2020-09-21] MEDS: amLODIPine 10 MG TAB PO SCH (09:26)
[2020-09-21] MEDS: FERROUS SULFATE 325 MG TAB PO SCH (09:27)
[2020-09-21] MEDS: PANTOPRAZOLE 20 MG TAB PO SCH (09:27)
[2020-09-21] MEDS: SODIUM CHLORIDE 1 GM TAB PO SCH ×2 (09:27→21:54)
[2020-09-21] MEDS: DOXAZOSIN 1 MG TAB PO SCH (09:28)
--- NOTE | 2020-09-21 15:50 | Progress Note ---
Assessment and Plan Assessment and plan: Acute kidney injury; vasomotor nephropathy present on admission Patient received IV fluids, renal function significantly improved to normal range Closely monitor renal function, avoid nephrotoxin, closely monitor electrolytes --Severe agitation; Current Visit: Yes Status: Acute Significantly improved, today patient is alert awake oriented Calm and composed, responding appropriately DC the restraints --Severe toxic metabolic encephalopathy;[ present on admission] Current Visit: Yes Status: Acute Patient is severely agitated confused. Requiring restraints However patient symptoms significantly improved today More alert and awake DC letter restraints Tolerating oral diet CT head without contrast; 09/19/2020 atherosclerotic disease in the anterior circulation, no focal mass hemorrhage hydrocephalus and no acute large territorial infarct --Severe hyponatremia /sodium today 136-139 Current Visit: Yes Status: Acute DC IV fluids, closely monitor electrolytes -- Acute respiratory failure with hypoxia Current Visit: Yes Status: Acute Patient is nebulizer treatments IV Solu-Medrol and IV Levaquin -- COPD exacerbation Current Visit: Yes Status: Acute Patient on duo nebs and Solu-Medrol and antibiotics -- Asthma Current Visit: Yes Status: Acute Nebulizer treatments as necessary -- Hypertension Current Visit: Yes Status: Chronic Continue losartan and amlodipine --GERD (gastroesophageal reflux disease) Current Visit: Yes Status: Chronic Continue PPIs -- DVT prophylaxis Current Visit: No Status: Acute Heparin and GI prophylaxis for now We will closely monitor the patient and adjust management as needed We will closely monitor the patient and adjust management as needed Plan of care reviewed with the patient and his nurse 09/19/2020; Patient remains confused agitated Requiring restraints Sodium level significantly improved CT head without contrast; acute low atherosclerotic disease in the anterior circulation No acute CVA or mass or hemorrhage If no improvement will consult neurology 09/20/2020; Patient is alert awake oriented, no confusion or agitation Discontinued restraints, electrolytes improved Physical therapy occupational therapy DC planning when medically stable Probably in 1 or 2 days 09/21/2020; Patient was evaluated by PT, recommend home health \Possible discharge home with home health tomorrow if stable History Interval history: I have seen and examined the patient at the bedside Patient's chart and medications reviewed Patient is more alert and awake responding appropriately Tolerated the physical therapy No new complaints Hospitalist Physical - Constitutional Vitals: Temp Pulse Resp BP Pulse Ox 98.3 F 90 20 130/54 95 09/21/20 04:47 09/21/20 13:05 09/21/20 13:05 09/21/20 09:28 09/21/20 13:08 General appearance: Present: no acute distress, well-nourished, obese, other (Alert and awake oriented x3) - EENT Eyes: Present: PERRL, EOM intact - Neck Neck: Present: supple, normal ROM - Respiratory Respiratory effort: normal Respiratory: bilateral: diminished, negative: rales, rhonchi, wheezing - Cardiovascular Rhythm: regular Heart Sounds: Present: S1 & S2 - Extremities Extremities: no ischemia, No edema - Abdominal General gastrointestinal: soft, non-tender, non-distended, normal bowel sounds - Integumentary Integumentary: Present: clear, warm - Psychiatric Psychiatric: appropriate mood/affect, cooperative - Neurologic Neurologic: CNII-XII intact, moves all extremities HEART Score - HEART Score Troponin: Troponin T < 0.010 ng/mL (0.00-0.029) 09/14/20 21:48 Results - Labs CBC & Chem 7: 09/17/20 06:01 09/21/20 05:55 Labs: Laboratory Last Values WBC 9.0 K/mm3 (4.5-11.0) 09/17/20 06:01 RBC 3.87 M/mm3 (3.65-5.03) 09/17/20 06:01 Hgb 11.3 gm/dl (11.8-15.2) L 09/17/20 06:01 Hct 33.7 % (35.5-45.6) L 09/17/20 06:01 MCV 87 fl (84-94) 09/17/20 06:01 MCH 29 pg (28-32) 09/17/20 06:01 MCHC 34 % (32-34) 09/17/20 06:01 RDW 13.6 % (13.2-15.2) 09/17/20 06:01 Plt Count 243 K/mm3 (140-440) 09/17/20 06:01 Lymph % (Auto) 9.3 % (13.4-35.0) L 09/16/20 04:39 [place] % (Auto) 6.8 % (0.0-7.3) 09/16/20 04:39 Eos % (Auto) 0.0 % (0.0-4.3) 09/16/20 04:39 Baso % (Auto) 0.6 % (0.0-1.8) 09/16/20 04:39 Lymph # (Auto) 0.9 K/mm3 (1.2-5.4) L 09/16/20 04:39 [place] # (Auto) 0.6 K/mm3 (0.0-0.8) 09/16/20 04:39 Eos # (Auto) 0.0 K/mm3 (0.0-0.4) 09/16/20 04:39 Baso # (Auto) 0.1 K/mm3 (0.0-0.1) 09/16/20 04:39 Add Manual Diff Complete 09/17/20 06:01 Total Counted 100 09/17/20 06:01 Seg Neutrophils % Acid Loader 09/17/20 06:01 Seg Neuts % (Manual) 98.0 % (40.0-70.0) H 09/15/20 14:37 Lymphocytes % (Manual) 1.0 % (13.4-35.0) L 09/15/20 14:37 Eosinophils % (Manual) 1.0 % (0.0-4.3) 09/15/20 14:37 Nucleated RBC % Not Reportable 09/17/20 06:01 Seg Neutrophils # 7.7 K/mm3 (1.8-7.7) 09/16/20 04:39 Seg Neutrophils # Man 9.0 K/mm3 (1.8-7.7) H 09/17/20 06:01 Band Neutrophils # 0.0 K/mm3 09/17/20 06:01 Lymphocytes # (Manual) 0.0 K/mm3 (1.2-5.4) L 09/17/20 06:01 Abs React Lymphs (Man) 0.0 K/mm3 09/17/20 06:01 Monocytes # (Manual) 0.0 K/mm3 (0.0-0.8) 09/17/20 06:01 Eosinophils # (Manual) 0.0 K/mm3 (0.0-0.4) 09/17/20 06:01 Basophils # (Manual) 0.0 K/mm3 (0.0-0.1) 09/17/20 06:01 Metamyelocytes # 0.0 K/mm3 09/17/20 06:01 Myelocytes # 0.0 K/mm3 09/17/20 06:01 Promyelocytes # 0.0 K/mm3 09/17/20 06:01 Blast Cells # 0.0 K/mm3 09/17/20 06:01 WBC Morphology Not Reportable 09/17/20 06:01 Hypersegmented Neuts Not Reportable 09/17/20 06:01 Hyposegmented Neuts Not Reportable 09/17/20 06:01 Hypogranular Neuts Not Reportable 09/17/20 06:01 Smudge Cells Not Reportable 09/17/20 06:01 Toxic Granulation Not Reportable 09/17/20 06:01 Toxic Vacuolation Not Reportable 09/17/20 06:01 Dohle Bodies Not Reportable 09/17/20 06:01 Pelger-Huet Anomaly Not Reportable 09/17/20 06:01 Clifford Rods Not Reportable 09/17/20 06:01 Platelet Estimate Consistent w auto 09/17/20 06:01 Clumped Platelets Not Reportable 09/17/20 06:01 Plt Clumps, EDTA Not Reportable 09/17/20 06:01 Large Platelets Not Reportable 09/17/20 06:01 Giant Platelets Not Reportable 09/17/20 06:01 Platelet Satelliting Not Reportable 09/17/20 06:01 Plt Morphology Comment Not Reportable 09/17/20 06:01 RBC Morphology Normal 09/17/20 06:01 Dimorphic RBCs Not Reportable 09/17/20 06:01 Polychromasia Not Reportable 09/17/20 06:01 Hypochromasia Not Reportable 09/17/20 06:01 Poikilocytosis Not Reportable 09/17/20 06:01 Anisocytosis Not Reportable 09/17/20 06:01 Microcytosis Not Reportable 09/17/20 06:01 Macrocytosis Not Reportable 09/17/20 06:01 Spherocytes Not Reportable 09/17/20 06:01 Pappenheimer Bodies Not Reportable 09/17/20 06:01 Sickle Cells Not Reportable 09/17/20 06:01 Target Cells Not Reportable 09/17/20 06:01 Tear Drop Cells Not Reportable 09/17/20 06:01 Ovalocytes Not Reportable 09/17/20 06:01 Helmet Cells Not Reportable 09/17/20 06:01 [place] Bodies Not Reportable 09/17/20 06:01 [place] Rings Not Reportable 09/17/20 06:01 Janet Cells Not Reportable 09/17/20 06:01 Bite Cells Not Reportable 09/17/20 06:01 Crenated Cell Not Reportable 09/17/20 06:01 Elliptocytes Not Reportable 09/17/20 06:01 Acanthocytes (Spur) Not Reportable 09/17/20 06:01 Rouleaux Not Reportable 09/17/20 06:01 Hemoglobin C Crystals Not Reportable 09/17/20 06:01 Schistocytes Not Reportable 09/17/20 06:01 Malaria parasites Not Reportable 09/17/20 06:01 Jordi Bodies Not Reportable 09/17/20 06:01 Hem Pathologist Commnt No 09/17/20 06:01 Sodium 138 mmol/L (137-145) 09/21/20 05:55 Potassium 4.6 mmol/L (3.6-5.0) 09/21/20 05:55 Chloride 100.0 mmol/L (98-107) 09/21/20 05:55 Carbon Dioxide 30 mmol/L (22-30) 09/21/20 05:55 Anion Gap 13 mmol/L 09/21/20 05:55 BUN 27 mg/dL (9-20) H 09/21/20 05:55 Creatinine 1.4 mg/dL (0.8-1.3) H 09/21/20 05:55 Estimated GFR 59 ml/min 09/21/20 05:55 BUN/Creatinine Ratio 19 % 09/21/20 05:55 Glucose 115 mg/dL (75-100) H 09/21/20 05:55 Hemoglobin A1c 6.3 % (4-6) H 09/15/20 14:37 Calcium 9.0 mg/dL (8.4-10.2) 09/21/20 05:55 Magnesium 2.10 mg/dL (1.7-2.3) 09/21/20 05:55 Total Bilirubin 0.30 mg/dL (0.1-1.2) 09/17/20 06:01 AST 82 units/L (5-40) H 09/17/20 06:01 ALT 30 units/L (7-56) 09/17/20 06:01 Alkaline Phosphatase 67 units/L (35-129) 09/17/20 06:01 Troponin T < 0.010 ng/mL (0.00-0.029) 09/14/20 21:48 NT-Pro-B Natriuret Pep 297.1 pg/mL (0-900) 09/14/20 21:48 Total Protein 7.0 g/dL (6.3-8.2) 09/17/20 06:01 Albumin 4.4 g/dL (3.9-5) 09/17/20 06:01 Albumin/Globulin Ratio 1.7 % 09/17/20 06:01 Buckner/IV: Voiding Method Urinal Active Medications - Current Medications Current Medications: Generic Name Dose Route Start Last Admin Trade Name Freq PRN Reason Stop Dose Admin Acetaminophen 650 mg 09/15/20 15:00 Acetaminophen 325 Mg Tab PO Q4H PRN Pain MILD(1-3)/Fever >100.5/MCNAMARA Albuterol 2.5 mg 09/16/20 13:00 09/20/20 02:24 Albuterol 2.5 Mg/3 Ml Nebu IH 2.5 mg Q4HRT PRN Administration Shortness Of Breath Albuterol/Ipratropium 1 ampul 09/21/20 20:00 Ipratropium/Albuterol Sulfate 3 Ml Ampul.Neb IH TIDRT ELIER Amlodipine Besylate 10 mg 09/16/20 13:00 09/21/20 09:26 Amlodipine 10 Mg Tab PO 10 mg DAILY ELIER Administration Arformoterol Tartrate 15 mcg 09/16/20 20:00 09/21/20 08:53 Arformoterol 15 Mcg/2 Ml Nebu IH 15 mcg Q12HRT ELIER Administration Atorvastatin Calcium 80 mg 09/16/20 22:00 09/20/20 21:14 Atorvastatin 40 Mg Tab PO 80 mg QHS ELIER Administration Budesonide 0.5 mg 09/16/20 13:00 09/21/20 08:53 Budesonide 0.5 Mg/2 Ml Nebu IH 0.5 mg Q12HRT ELIER Administration Doxazosin Mesylate 2 mg 09/17/20 10:00 09/21/20 09:28 Doxazosin 1 Mg Tab PO 2 mg QDAY ELIER Administration Ferrous Sulfate 325 mg 09/16/20 13:00 09/21/20 09:27 Ferrous Sulfate 325 Mg Tab PO 325 mg DAILY ELIER Administration Heparin Sodium (Porcine) 5,000 unit 09/15/20 14:15 09/21/20 09:22 Heparin 5,000 Unit/1 Ml Vial SUB-Q 5,000 unit Q12HR ELIER Administration Lorazepam 1 mg 09/17/20 17:42 09/19/20 23:28 Lorazepam 2 Mg/Ml Vial IV 1 mg Q6H PRN Administration Anxiety Losartan Potassium 50 mg 09/16/20 13:00 09/21/20 09:26 Losartan 50 Mg Tab PO 50 mg QDAY ELIER Administration Meclizine HCl 25 mg 09/16/20 13:00 09/17/20 09:34 Meclizine 25 Mg Tab PO 25 mg TID PRN Administration Vertigo Methylprednisolone Sodium Succinate 40 mg 09/17/20 18:00 09/21/20 15:23 Methylprednisolone Sod Succinate 125 Mg/2 Ml Inj IV 40 mg Q8HR ELIER Administration Metoclopramide HCl 10 mg 09/15/20 15:00 09/17/20 20:52 Metoclopramide 10 Mg/2 Ml Inj IV 10 mg Q6H PRN Administration Nausea And Vomiting Mirtazapine 45 mg 09/16/20 22:00 09/20/20 21:13 Mirtazapine 15 Mg Solutab PO 45 mg QHS ELIER Administration Ondansetron HCl 4 mg 09/15/20 15:00 09/16/20 23:10 Ondansetron 4 Mg/2 Ml Inj IV 4 mg Q8H PRN Administration Nausea And Vomiting Oxycodone/Acetaminophen 1 tab 09/15/20 15:00 09/19/20 09:25 Oxycodone /Acetaminophen 5-325mg Tab PO 1 tab Q6H PRN Administration Pain, Moderate (4-6) Pantoprazole Sodium 20 mg 09/17/20 07:30 09/21/20 09:27 Pantoprazole 20 Mg Tab PO 20 mg QDAC ELIER Administration Sodium Chloride 10 ml 09/15/20 22:00 09/21/20 15:23 Sodium Chloride 0.9% 10 Ml Flush Syringe IV 10 ml BID ELIER Administration Sodium Chloride 10 ml 09/15/20 14:13 Sodium Chloride 0.9% 10 Ml Flush Syringe IV PRN PRN LINE FLUSH Sodium Chloride 1 gm 09/18/20 22:00 09/21/20 09:27 Sodium Chloride 1 Gm Tab PO 1 gm BID ELIER Administration
[2020-09-21] MEDS: MIRTAZAPINE 15 MG SOLUTAB PO SCH (21:54)
[2020-09-22] MEDS: methylPREDNISolone Sod Succinate 125 MG/2 ML INJ IV SCH ×2 (06:01→14:19)
[2020-09-22] MEDS: FERROUS SULFATE 325 MG TAB PO SCH (09:06)
[2020-09-22] MEDS: BUDESONIDE 0.5 MG/2 ML NEBU IH SCH (10:35)
[2020-09-22] MEDS: ARFORMOTEROL 15 MCG/2 ML NEBU IH SCH (10:35)
[2020-09-22] MEDS: IPRATROPIUM/ALBUTEROL SULFATE 3 ML AMPUL.NEB IH SCH ×2 (10:35→16:35)
[2020-09-22] MEDS: PANTOPRAZOLE 20 MG TAB PO SCH (11:18)
[2020-09-22] MEDS: LOSARTAN 50 MG TAB PO SCH (11:30)
[2020-09-22] MEDS: HEPARIN 5,000 UNIT/1 ML VIAL SUB-Q SCH (11:30)
[2020-09-22] MEDS: amLODIPine 10 MG TAB PO SCH (11:30)
[2020-09-22] MEDS: SODIUM CHLORIDE 1 GM TAB PO SCH (11:30)
[2020-09-22] MEDS: DOXAZOSIN 1 MG TAB PO SCH (11:30)
--- NOTE | 2020-09-22 14:17 | Discharge Summary ---
Providers - Providers Date of Admission: 09/15/20 14:13 Date of discharge: 09/22/20 Attending physician: REGINE WEINBERG 09/18/20 16:39 Physical Therapy Evaluation and Treat [CONS] Routine Comment: Reason For Exam: Debility 09/18/20 16:41 Occupational Therapy Evaluate and Treat [CONS] Routine Comment: Reason For Exam: Debility Primary care physician: CUTTER BANANA ROOM Hospitalization Condition: Stable Disposition: DC-30 STILL A PATIENT Exam - Constitutional Vitals: Temp Pulse Resp BP Pulse Ox 97.6 F 84 18 123/72 92 09/22/20 11:20 09/22/20 11:20 09/22/20 11:20 09/22/20 11:20 09/22/20 11:20 Plan Activity: advance as tolerated, fall precautions Diet: other (Cardiac diet) Special Instructions: physical therapy, occupational therapy Follow up with: PRIMARY CARE,MD [Primary Care Provider] - 3-5 Days Prescriptions: Prednisone [predniSONE 10 mg (6-Day Pack, 21 Tabs)] 10 mg PO .TAPER #1 tab.ds.pk Other Discharge Orders: [facility] (Amb) Location: None Selected
[2020-09-22 16:31] VITALS: BP 133/69
--- NOTE | 2020-09-22 19:32 | Progress Note ---
Assessment and Plan Assessment and plan: Acute kidney injury; vasomotor nephropathy present on admission Patient received IV fluids, renal function significantly improved to normal range Closely monitor renal function, avoid nephrotoxin, closely monitor electrolytes --Severe agitation; Current Visit: Yes Status: Acute Significantly improved, today patient is alert awake oriented Calm and composed, responding appropriately DC the restraints --Severe toxic metabolic encephalopathy;[ present on admission] Current Visit: Yes Status: Acute Patient is severely agitated confused. Requiring restraints However patient symptoms significantly improved today More alert and awake DC letter restraints Tolerating oral diet CT head without contrast; 09/19/2020 atherosclerotic disease in the anterior circulation, no focal mass hemorrhage hydrocephalus and no acute large territorial infarct --Severe hyponatremia /sodium today 136-139 Current Visit: Yes Status: Acute DC IV fluids, closely monitor electrolytes -- Acute respiratory failure with hypoxia Current Visit: Yes Status: Acute Patient is nebulizer treatments IV Solu-Medrol and IV Levaquin -- COPD exacerbation Current Visit: Yes Status: Acute Patient on duo nebs and Solu-Medrol and antibiotics -- Asthma Current Visit: Yes Status: Acute Nebulizer treatments as necessary -- Hypertension Current Visit: Yes Status: Chronic Continue losartan and amlodipine --GERD (gastroesophageal reflux disease) Current Visit: Yes Status: Chronic Continue PPIs -- DVT prophylaxis Current Visit: No Status: Acute Heparin and GI prophylaxis for now We will closely monitor the patient and adjust management as needed We will closely monitor the patient and adjust management as needed Plan of care reviewed with the patient and his nurse Equipment was not available at discharge Discharge is held 09/19/2020; Patient remains confused agitated Requiring restraints Sodium level significantly improved CT head without contrast; acute low atherosclerotic disease in the anterior circulation No acute CVA or mass or hemorrhage If no improvement will consult neurology 09/20/2020; Patient is alert awake oriented, no confusion or agitation Discontinued restraints, electrolytes improved Physical therapy occupational therapy DC planning when medically stable Probably in 1 or 2 days 09/21/2020; Patient was evaluated by PT, recommend home health \Possible discharge home with home health tomorrow if stable 09/22/2020; Patient received physical therapy, recommended home PT and rolling walker Awaiting rolling walker arrival, DC if stable History Interval history: I have seen and examined the patient at the bedside Patient's chart medications reviewed Patient is more alert and awake today no new complaints Vital signs stable Ambulatory with rolling walker PT recommended home health with home rolling walker Case management processing Hospitalist Physical - Constitutional Vitals: Temp Pulse Resp BP Pulse Ox 98.7 F 85 18 133/69 93 09/22/20 15:41 09/22/20 15:41 09/22/20 15:41 09/22/20 15:41 09/22/20 15:41 General appearance: Present: no acute distress, well-nourished, obese, other (Alert and awake oriented x3) - EENT Eyes: Present: PERRL, EOM intact - Neck Neck: Present: supple, normal ROM - Respiratory Respiratory effort: normal Respiratory: bilateral: diminished, negative: rales, rhonchi, wheezing - Cardiovascular Rhythm: regular Heart Sounds: Present: S1 & S2 - Extremities Extremities: no ischemia, No edema - Abdominal General gastrointestinal: soft, non-tender, non-distended, normal bowel sounds - Integumentary Integumentary: Present: clear, warm - Psychiatric Psychiatric: appropriate mood/affect, cooperative - Neurologic Neurologic: CNII-XII intact, moves all extremities HEART Score - HEART Score Troponin: Troponin T < 0.010 ng/mL (0.00-0.029) 09/14/20 21:48 Results - Labs CBC & Chem 7: 09/17/20 06:01 09/21/20 05:55 Labs: Laboratory Last Values WBC 9.0 K/mm3 (4.5-11.0) 09/17/20 06:01 RBC 3.87 M/mm3 (3.65-5.03) 09/17/20 06:01 Hgb 11.3 gm/dl (11.8-15.2) L 09/17/20 06:01 Hct 33.7 % (35.5-45.6) L 09/17/20 06:01 MCV 87 fl (84-94) 09/17/20 06:01 MCH 29 pg (28-32) 09/17/20 06:01 MCHC 34 % (32-34) 09/17/20 06:01 RDW 13.6 % (13.2-15.2) 09/17/20 06:01 Plt Count 243 K/mm3 (140-440) 09/17/20 06:01 Lymph % (Auto) 9.3 % (13.4-35.0) L 09/16/20 04:39 [place] % (Auto) 6.8 % (0.0-7.3) 09/16/20 04:39 Eos % (Auto) 0.0 % (0.0-4.3) 09/16/20 04:39 Baso % (Auto) 0.6 % (0.0-1.8) 09/16/20 04:39 Lymph # (Auto) 0.9 K/mm3 (1.2-5.4) L 09/16/20 04:39 [place] # (Auto) 0.6 K/mm3 (0.0-0.8) 09/16/20 04:39 Eos # (Auto) 0.0 K/mm3 (0.0-0.4) 09/16/20 04:39 Baso # (Auto) 0.1 K/mm3 (0.0-0.1) 09/16/20 04:39 Add Manual Diff Complete 09/17/20 06:01 Total Counted 100 09/17/20 06:01 Seg Neutrophils % Distributor Advertising Material 09/17/20 06:01 Seg Neuts % (Manual) 98.0 % (40.0-70.0) H 09/15/20 14:37 Lymphocytes % (Manual) 1.0 % (13.4-35.0) L 09/15/20 14:37 Eosinophils % (Manual) 1.0 % (0.0-4.3) 09/15/20 14:37 Nucleated RBC % Not Reportable 09/17/20 06:01 Seg Neutrophils # 7.7 K/mm3 (1.8-7.7) 09/16/20 04:39 Seg Neutrophils # Man 9.0 K/mm3 (1.8-7.7) H 09/17/20 06:01 Band Neutrophils # 0.0 K/mm3 09/17/20 06:01 Lymphocytes # (Manual) 0.0 K/mm3 (1.2-5.4) L 09/17/20 06:01 Abs React Lymphs (Man) 0.0 K/mm3 09/17/20 06:01 Monocytes # (Manual) 0.0 K/mm3 (0.0-0.8) 09/17/20 06:01 Eosinophils # (Manual) 0.0 K/mm3 (0.0-0.4) 09/17/20 06:01 Basophils # (Manual) 0.0 K/mm3 (0.0-0.1) 09/17/20 06:01 Metamyelocytes # 0.0 K/mm3 09/17/20 06:01 Myelocytes # 0.0 K/mm3 09/17/20 06:01 Promyelocytes # 0.0 K/mm3 09/17/20 06:01 Blast Cells # 0.0 K/mm3 09/17/20 06:01 WBC Morphology Not Reportable 09/17/20 06:01 Hypersegmented Neuts Not Reportable 09/17/20 06:01 Hyposegmented Neuts Not Reportable 09/17/20 06:01 Hypogranular Neuts Not Reportable 09/17/20 06:01 Smudge Cells Not Reportable 09/17/20 06:01 Toxic Granulation Not Reportable 09/17/20 06:01 Toxic Vacuolation Not Reportable 09/17/20 06:01 Dohle Bodies Not Reportable 09/17/20 06:01 Pelger-Huet Anomaly Not Reportable 09/17/20 06:01 Clifford Rods Not Reportable 09/17/20 06:01 Platelet Estimate Consistent w auto 09/17/20 06:01 Clumped Platelets Not Reportable 09/17/20 06:01 Plt Clumps, EDTA Not Reportable 09/17/20 06:01 Large Platelets Not Reportable 09/17/20 06:01 Giant Platelets Not Reportable 09/17/20 06:01 Platelet Satelliting Not Reportable 09/17/20 06:01 Plt Morphology Comment Not Reportable 09/17/20 06:01 RBC Morphology Normal 09/17/20 06:01 Dimorphic RBCs Not Reportable 09/17/20 06:01 Polychromasia Not Reportable 09/17/20 06:01 Hypochromasia Not Reportable 09/17/20 06:01 Poikilocytosis Not Reportable 09/17/20 06:01 Anisocytosis Not Reportable 09/17/20 06:01 Microcytosis Not Reportable 09/17/20 06:01 Macrocytosis Not Reportable 09/17/20 06:01 Spherocytes Not Reportable 09/17/20 06:01 Pappenheimer Bodies Not Reportable 09/17/20 06:01 Sickle Cells Not Reportable 09/17/20 06:01 Target Cells Not Reportable 09/17/20 06:01 Tear Drop Cells Not Reportable 09/17/20 06:01 Ovalocytes Not Reportable 09/17/20 06:01 Helmet Cells Not Reportable 09/17/20 06:01 [place] Bodies Not Reportable 09/17/20 06:01 [place] Rings Not Reportable 09/17/20 06:01 [place] Cells Not Reportable 09/17/20 06:01 Bite Cells Not Reportable 09/17/20 06:01 Crenated Cell Not Reportable 09/17/20 06:01 Elliptocytes Not Reportable 09/17/20 06:01 Acanthocytes (Spur) Not Reportable 09/17/20 06:01 Rouleaux Not Reportable 09/17/20 06:01 Hemoglobin C Crystals Not Reportable 09/17/20 06:01 Schistocytes Not Reportable 09/17/20 06:01 Malaria parasites Not Reportable 09/17/20 06:01 Jordi Bodies Not Reportable 09/17/20 06:01 Hem Pathologist Commnt No 09/17/20 06:01 Sodium 138 mmol/L (137-145) 09/21/20 05:55 Potassium 4.6 mmol/L (3.6-5.0) 09/21/20 05:55 Chloride 100.0 mmol/L (98-107) 09/21/20 05:55 Carbon Dioxide 30 mmol/L (22-30) 09/21/20 05:55 Anion Gap 13 mmol/L 09/21/20 05:55 BUN 27 mg/dL (9-20) H 09/21/20 05:55 Creatinine 1.4 mg/dL (0.8-1.3) H 09/21/20 05:55 Estimated GFR 59 ml/min 09/21/20 05:55 BUN/Creatinine Ratio 19 % 09/21/20 05:55 Glucose 115 mg/dL (75-100) H 09/21/20 05:55 Hemoglobin A1c 6.3 % (4-6) H 09/15/20 14:37 Calcium 9.0 mg/dL (8.4-10.2) 09/21/20 05:55 Magnesium 2.10 mg/dL (1.7-2.3) 09/21/20 05:55 Total Bilirubin 0.30 mg/dL (0.1-1.2) 09/17/20 06:01 AST 82 units/L (5-40) H 09/17/20 06:01 ALT 30 units/L (7-56) 09/17/20 06:01 Alkaline Phosphatase 67 units/L (35-129) 09/17/20 06:01 Troponin T < 0.010 ng/mL (0.00-0.029) 09/14/20 21:48 NT-Pro-B Natriuret Pep 297.1 pg/mL (0-900) 09/14/20 21:48 Total Protein 7.0 g/dL (6.3-8.2) 09/17/20 06:01 Albumin 4.4 g/dL (3.9-5) 09/17/20 06:01 Albumin/Globulin Ratio 1.7 % 09/17/20 06:01 [place]/IV: Voiding Method Toilet Active Medications - Current Medications Current Medications: Generic Name Dose Route Start Last Admin Trade Name Freq PRN Reason Stop Dose Admin Acetaminophen 650 mg 09/15/20 15:00 Acetaminophen 325 Mg Tab PO Q4H PRN Pain MILD(1-3)/Fever >100.5/MCANMARA Albuterol 2.5 mg 09/16/20 13:00 09/20/20 02:24 Albuterol 2.5 Mg/3 Ml Nebu IH 2.5 mg Q4HRT PRN Administration Shortness Of Breath Albuterol/Ipratropium 1 ampul 09/21/20 20:00 09/22/20 16:35 Ipratropium/Albuterol Sulfate 3 Ml Ampul.Neb IH Not Given TIDRT ELIER Amlodipine Besylate 10 mg 09/16/20 13:00 09/22/20 11:30 Amlodipine 10 Mg Tab PO 10 mg DAILY ELIER Administration Arformoterol Tartrate 15 mcg 09/16/20 20:00 09/22/20 10:35 Arformoterol 15 Mcg/2 Ml Nebu IH 15 mcg Q12HRT ELIER Administration Atorvastatin Calcium 80 mg 09/16/20 22:00 09/21/20 21:54 Atorvastatin 40 Mg Tab PO 80 mg QHS ELIER Administration Budesonide 0.5 mg 09/16/20 13:00 09/22/20 10:35 Budesonide 0.5 Mg/2 Ml Nebu IH 0.5 mg Q12HRT ELIER Administration Doxazosin Mesylate 2 mg 09/17/20 10:00 09/22/20 11:30 Doxazosin 1 Mg Tab PO 2 mg QDAY ELIER Administration Ferrous Sulfate 325 mg 09/16/20 13:00 09/22/20 09:06 Ferrous Sulfate 325 Mg Tab PO 325 mg DAILY ELIER Administration Heparin Sodium (Porcine) 5,000 unit 09/15/20 14:15 09/22/20 11:30 Heparin 5,000 Unit/1 Ml Vial SUB-Q 5,000 unit Q12HR ELIER Administration Lorazepam 1 mg 09/17/20 17:42 09/19/20 23:28 Lorazepam 2 Mg/Ml Vial IV 1 mg Q6H PRN Administration Anxiety Losartan Potassium 50 mg 09/16/20 13:00 09/22/20 11:30 Losartan 50 Mg Tab PO 50 mg QDAY ELIER Administration Meclizine HCl 25 mg 09/16/20 13:00 09/17/20 09:34 Meclizine 25 Mg Tab PO 25 mg TID PRN Administration Vertigo Methylprednisolone Sodium Succinate 40 mg 09/17/20 18:00 09/22/20 14:19 Methylprednisolone Sod Succinate 125 Mg/2 Ml Inj IV 40 mg Q8HR ELIER Administration Metoclopramide HCl 10 mg 09/15/20 15:00 09/17/20 20:52 Metoclopramide 10 Mg/2 Ml Inj IV 10 mg Q6H PRN Administration Nausea And Vomiting Mirtazapine 45 mg 09/16/20 22:00 09/21/20 21:54 Mirtazapine 15 Mg Solutab PO 45 mg QHS ELIER Administration Ondansetron HCl 4 mg 09/15/20 15:00 09/16/20 23:10 Ondansetron 4 Mg/2 Ml Inj IV 4 mg Q8H PRN Administration Nausea And Vomiting Oxycodone/Acetaminophen 1 tab 09/15/20 15:00 09/19/20 09:25 Oxycodone /Acetaminophen 5-325mg Tab PO 1 tab Q6H PRN Administration Pain, Moderate (4-6) Pantoprazole Sodium 20 mg 09/17/20 07:30 09/22/20 11:18 Pantoprazole 20 Mg Tab PO 20 mg QDAC ELIER Administration Sodium Chloride 10 ml 08/03/21 22:00 09/22/20 14:08 Sodium Chloride 0.9% 10 Ml Flush Syringe IV 10 ml BID ELIER Administration Sodium Chloride 10 ml 09/15/20 14:13 Sodium Chloride 0.9% 10 Ml Flush Syringe IV PRN PRN LINE FLUSH Sodium Chloride 1 gm 09/18/20 22:00 09/22/20 11:30 Sodium Chloride 1 Gm Tab PO 1 gm BID ELIER Administration Nutrition/Malnutrition Assess - Dietary Evaluation Nutrition/Malnutrition Findings: Nutrition Notes Start: 09/22/20 10:17 Freq: Status: Active Protocol: Document 09/22/20 10:17 BRENDAN (Rec: 09/22/20 10:18 BRENDAN [id number]) Nutrition Notes Need for Assessment generated from: LOS Initial or Follow up Brief Note Subjective/Other Information Screen for LOS. Pt reports eating 100% of meals. Nutrition Intervention Revisit per MD consult or patient Sign Off request:
== END 2020-09-22 20:15 | disposition home or self-care (01) | DRG 189 ==
LOC: ED 18:51 → 3A 09-15 08:27 → OBSVTOIN 09-15 14:13 → 3B-SURG 09-15 23:00
PROVIDERS: ADMIT Internal Medicine; ATTEND Internal Medicine
DX: J96.01 Acute respiratory failure with hypoxia (principal); G92 Toxic encephalopathy; N17.0 Acute kidney failure with tubular necrosis; J45.901 Unspecified asthma with (acute) exacerbation; E87.1 Hypo-osmolality and hyponatremia; J44.1 Chronic obstructive pulmonary disease with (acute) exacerbation; E78.5 Hyperlipidemia, unspecified; I10 Essential (primary) hypertension; K21.9 Gastro-esophageal reflux disease without esophagitis; R45.1 Restlessness and agitation; Z90.5 Acquired absence of kidney; Z79.899 Other long term (current) drug therapy; Z86.718 Personal history of other venous thrombosis and embolism; Z79.01 Long term (current) use of anticoagulants; Z87.891 Personal history of nicotine dependence; Z82.49 Family history of ischemic heart disease and other diseases of the circulatory system
CPT/HCPCS: 36415; 70450; 71045; 80048; 80053; 83036; 83735; 83880; 84484; 85007; 85025; 93005; 94640; 94760; G0378; A9270-GY; J1100; J1200; J1630; J1644; J1940; J2060; J2405; J2765; J2930; J3475; J7030; J7050

== ENCOUNTER 2020-10-08 22:53 | Emergency (ER) | payer MEDICARE ==
[~2020-10-08 22:53] MED LIST: EPINEPHrine 1 MG/10 ML SYRINGE ONE; SODIUM BICARB 8.4% 50 MEQ/50 ML SYRINGE IV ONE
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
== END 2020-10-09 04:31 ==
LOC: ED 22:53
DX: I46.9 Cardiac arrest, cause unspecified (principal); I10 Essential (primary) hypertension; J45.909 Unspecified asthma, uncomplicated; F17.200 Nicotine dependence, unspecified, uncomplicated
CPT/HCPCS: 92950; 99285; J0171